=== PATIENT | female | born 1960 | race Caucasian/White ===

== ENCOUNTER 2018-07-22 23:51 | Outpatient (CLI) | payer MEDICARE, MEDICAID | END 2018-07-22 23:52 | disposition critical access hospital (66) | LOC: EMS 23:51 | PROVIDERS: ATTEND Surgery | DX: R20.2 Paresthesia of skin (principal); R20.0 Anesthesia of skin | CPT/HCPCS: A0425; A0429 ==

== ENCOUNTER 2018-07-23 00:05 | Emergency (ER) | payer MEDICARE, MEDICAID ==
--- NOTE | 2018-07-23 00:27 | ED Physician Documentation ---
PD HPI UPPER EXT INJURY - Stated complaint Stated Complaint: L SHOULDER PX - Chief complaint Chief Complaint: Ext Problem - History obtained from History obtained from: Patient, EMS - History of Present Illness Location: Left, Shoulder Type of injury: No: Fall, Twist Where injury occurred: Home Timing - onset: How many weeks ago (She has had intermittent pain in the left shoulder and worse the last 3 weeks. It is worsened by overhead reaching, twisting and lifting. She states it hurt more this past evening and was associa juan alberto with some shortness of breath and tightness in her chest.) Timing - details: Waxing and waning Improved by: Rest Worsened by: Moving. No: Palpating Associated symptoms: No: Weakness, Numbness, Swelling Similar symptoms before: Has not had sx before Recently seen: Not recently seen Review of Systems Constitutional: denies: Fever, Chills Nose: denies: Rhinorrhea / runny nose, Congestion Throat: denies: Sore throat Cardiac: reports: Chest pain / pressure (left upper chest and shoulder). 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 : None HEENT: None Psych: None Musculoskeletal: None Derm: None - Past Surgical History Past Surgical History: Yes /[employer]: Oophrectomy - Present Medications Home Medications: Ambulatory Orders Medication Instructions Recorded Confirmed Methocarbamol [Robaxin] 500 mg PO Q6H PRN #30 tablet 07/23/18 Naproxen 375 mg PO BID #20 tablet 07/23/18 - Allergies Allergies/Adverse Reactions: Allergies Allergy/AdvReac Type Severity Reaction Status Date / Time No Known Drug Allergies Allergy Verified 07/23/18 00:09 - Social History Does the pt smoke?: Yes Smoking Status: Current every day smoker Does the pt drink ETOH?: Yes Does the pt have substance abuse?: No - Immunizations Immunizations are current?: Yes - POLST Patient has POLST: No PD ED PE NORMAL - Vitals Vital signs reviewed: Yes - General General: Alert and oriented X 3, Well developed/nourished, Other (some slurring of speech and strong smell of alcohol) - HEENT HEENT: Pharynx benign - Neck Neck: Supple, no meningeal sign, No adenopathy - Cardiac Cardiac: RRR, No murmur - Respiratory Respiratory: Clear bilaterally - Abdomen Abdomen: Soft, Non tender - Derm Derm: Normal color, Warm and dry - Extremities Extremities: No tenderness to palpate, Normal ROM s pain, No edema, No calf tenderness / cord, Other (left shoulder tender around anterior aspect and AC area. Pain with pulling and abduction.) - Neuro Neuro: Alert and oriented X 3, No motor deficit, No sensory deficit, Normal speech Results - Vitals Vitals: Vital Signs - 24 hr 07/23/18 07/23/18 07/23/18 00:05 00:45 01:14 Temperature 36.5 C Heart Rate 86 84 71 Respiratory 18 20 15 Rate Blood Pressure 142/87 H 117/84 H 120/81 H O2 Saturation 98 96 100 07/23/18 07/23/18 07/23/18 01:28 02:44 02:59 Temperature Heart Rate 76 76 93 Respiratory 19 17 20 Rate Blood Pressure 120/81 H 105/74 105/74 O2 Saturation 98 99 Oxygen O2 Source Room air - EKG (time done) presentation Rhythm: NSR [place]: Normal Intervals: Normal [place] QRS: Normal Ischemia: Normal ST segments. No: ST elevation c/w ischemia, ST depression - Labs Labs: Laboratory Tests 07/23/18 07/23/18 07/23/18 00:15 00:15 00:15 WBC 4.4 L RBC 4.64 Hgb 13.7 Hct 41.4 MCV 89.3 MCH 29.6 MCHC 33.1 RDW 13.9 Plt Count 84 L MPV 9.0 Neut # (Auto) 1.9 Lymph # (Auto) 2.2 [place] # (Auto) 0.3 Eos # (Auto) 0.0 Baso # (Auto) 0.1 Absolute Nucleated RBC 0.00 Nucleated RBC % 0.1 Sodium 137 Potassium 3.7 Chloride 102 Carbon Dioxide 25 Anion Gap 10.0 BUN 7 Creatinine 0.4 Estimated GFR (MDRD) 163 Glucose 87 Calcium 8.4 L Magnesium 2.0 Total Bilirubin 0.7 AST 116 H ALT 44 Alkaline Phosphatase 236 H Troponin I < 0.04 Total Protein 8.3 H Albumin 3.4 Globulin 4.9 H Albumin/Globulin Ratio 0.7 L Lipase 50 TSH Ethyl Alcohol 385.2 07/23/18 00:15 WBC RBC Hgb Hct MCV MCH MCHC RDW Plt Count MPV Neut # (Auto) Lymph # (Auto) [place] # (Auto) Eos # (Auto) Baso # (Auto) Absolute Nucleated RBC Nucleated RBC % Sodium Potassium Chloride Carbon Dioxide Anion Gap BUN Creatinine Estimated GFR (MDRD) Glucose Calcium Magnesium Total Bilirubin AST ALT Alkaline Phosphatase Troponin I Total Protein Albumin Globulin Albumin/Globulin Ratio Lipase TSH 2.15 Ethyl Alcohol - Rads (name of study) chest xray Radiology: Prelim report reviewed, EMP read contemporaneously (prior healed rib fractures. no acute.), See rad report left shoulder Radiology: Prelim report reviewed (no acute), See rad report PD MEDICAL DECISION MAKING - ED course Complexity details: considered differential (shoulder and left chest pain seem musculoskeletal. ), d/w patient Departure - Departure Disposition: 01 Home, Self Care Clinical Impression: Left shoulder pain Qualifiers: Chronicity: acute Qualified Code(s): M25.512 - Pain in left shoulder Alcohol intoxication Qualifiers: Complication of substance-induced condition: uncomplicated Qualified Code(s): F10.920 - Alcohol use, unspecified with intoxication, uncomplicated Condition: Stable Record reviewed to determine appropriate education?: Yes Instructions: ED Alcohol Abuse, ED Shoulder Pain [facility] Follow-Up: [facility] [Provider Group] [facility] [Provider Group] Prescriptions: Methocarbamol [Robaxin] 500 mg PO Q6H PRN #30 tablet PRN Reason: Spasms Naproxen 375 mg PO BID #20 tablet Comments: Your blood tests, EKG, chest x-ray did not show any obvious heart or lung cause for the pains. I presume its musculoskeletal pain of the shoulder. I would suggest taking some naproxen twice daily with food for the next 7-10 days. You can add methocarbamol muscle relaxant as needed for the spasm type episodes of pain. Add Tylenol if needed for pain. Recheck if not improved over the next week or so. Your alcohol level is quite high here in it sounds like you probably drink excessively. I would suggest seeking treatment programs, AA, her primary care to help with alcohol reduction and cessation. Discharge Date/Time: 07/23/18 03:27
[2018-07-23] MEDS ORDERED: SODIUM CHLORIDE 0.9% 1,000 ML IV ONE (00:46)
[2018-07-23] MEDS ORDERED: KETOROLAC 15 MG/ML VIAL IVP STA (00:47)
[2018-07-23] MEDS ORDERED: ACETAMINOPHEN 325 MG TABLET PO STA (00:48)
[2018-07-23 00:54] LABS: BASOPHILS # (AUTO) 0.1 10^3/uL (0.0-0.1); BASOPHILS % (AUTO) 1.3 %; EOSINOPHILS % (AUTO) 0.3 %; HGB - HEMOGLOBIN 13.7 g/dL (12.0-16.0); LYMPHOCYTES # (AUTO) 2.2 10^3/uL (1.5-3.5); LYMPHOCYTES % (AUTO) 49.8 %; MEAN CORPUSCULAR HEMOGLOBIN 29.6 pg (27.0-31.0); MEAN CORPUSCULAR HGB CONC 33.1 g/dL (32.0-36.0); MEAN CORPUSCULAR VOLUME 89.3 fL (81.0-99.0); MONOCYTES # (AUTO) 0.3 10^3/uL (0.0-1.0); MONOCYTES % (AUTO) 6.3 %; NEUTROPHILS # (AUTO) 1.9 10^3/uL (1.5-6.6); NEUTROPHILS % (AUTO) 42.3 %; PLT - PLATELET COUNT 84 10^3/uL (130-450); RED BLOOD COUNT 4.64 10^6/uL (4.20-5.40); RED CELL DISTRIBUTION WIDTH 13.9 % (12.0-15.0); WHITE BLOOD COUNT 4.4 x10^3/uL (4.8-10.8)
[2018-07-23 01:04] LABS: ALBUMIN 3.4 g/dL (3.2-5.5); ALBUMIN/GLOBULIN RATIO 0.7 (1.0-2.2); BILIRUBIN,TOTAL 0.7 mg/dL (0.2-1.0); CALCIUM 8.4 mg/dL (8.5-10.3); CREATININE 0.4 mg/dL (0.4-1.0); TOTAL PROTEIN 8.3 g/dL (6.7-8.2)
--- NOTE | 2018-07-23 02:26 | XRAY Report ---
Reason: chest pain Procedure Date: 07/23/2018 Accession Number: [id number] / [id number] Procedure: XR - Chest 1 View X-Ray CPT Code: 61216 FULL RESULT: EXAM: CHEST RADIOGRAPHY EXAM DATE: 07/23/2018 02:12 AM. CLINICAL HISTORY: Chest pain. COMPARISON: [facility]BS W/PA CHEST RT 10/04/2014 9:30 AM SHOULDER 3 VIEW LT 07/23/2018 1:57 AM. TECHNIQUE: 1 view. FINDINGS: Lungs/Pleura: No focal opacities evident. No pleural effusion. No pneumothorax. Mediastinum: Within exam limitations, the cardiomediastinal contour is normal. Other: Old, healed rib fractures. IMPRESSION: No evidence of acute cardiopulmonary disease. RADIA
--- NOTE | 2018-07-23 02:27 | XRAY Report ---
Reason: left shoulder pain for 3 weeks Procedure Date: 07/23/2018 Accession Number: [id number] / [id number] Procedure: XR - Shoulder 3 View LT CPT Code: FULL RESULT: EXAM: LEFT SHOULDER RADIOGRAPHY EXAM DATE: 07/23/2018 02:15 AM. CLINICAL HISTORY: Left shoulder pain for 3 weeks. COMPARISON: None. TECHNIQUE: 3 views. FINDINGS: Bones: No evidence of acute fracture. Old, healed left rib fractures. Joints: The glenohumeral and acromioclavicular joints are normal. Soft tissues: The visualized hemithorax is unremarkable. No soft tissue swelling. IMPRESSION: No evidence of acute fracture. RADIA
[2018-07-23 02:47] VITALS: BP 105/74
== END 2018-07-23 03:27 | disposition home or self-care (01) ==
LOC: EDUNIT# → ED 00:05
DX: M25.512 Pain in left shoulder (principal); F10.120 Alcohol abuse with intoxication, uncomplicated; Y90.8 Blood alcohol level of 240 mg/100 ml or more; F17.200 Nicotine dependence, unspecified, uncomplicated
CPT/HCPCS: 36415; 71045; 73030; 83690; 83735; 84484; 93005; 96361; 96374; 99283; 99284; A9270; 80053; 80320; 84443; 85025

== ENCOUNTER 2020-04-21 21:27 | Outpatient (CLI) | payer MEDICARE | END 2020-04-21 21:28 | disposition critical access hospital (66) | LOC: MERGE 21:27 → EMS 21:27 | PROVIDERS: ATTEND Surgery | DX: R41.82 Altered mental status, unspecified (principal); F10.129 Alcohol abuse with intoxication, unspecified; I95.9 Hypotension, unspecified | CPT/HCPCS: A0425; A0429 ==

== ENCOUNTER 2020-04-21 21:44 | Inpatient (IN) | payer MEDICARE, MEDICAID ==
--- NOTE | 2020-04-21 21:50 | ED Physician Documentation ---
PD HPI ALTERED MENTAL STATUS - Stated complaint Stated Complaint: AMS/ HBD - History obtained from History obtained from: EMS - History of Present Illness Timing - onset: Today (tonight) Quality / character: Less responsive, Disoriented Associated symptoms: NVD. No: Syncope Contributing factors: Intoxicated [place] status: Alert and oriented X 3, Ambulatory Recently seen: Not recently seen - Additional information Additional information: patient has AMS and thus not able to contribute to HPI/ROS. BIBArlen. 911 was called by patient's . Per EMS report, says that patient returned from a neighbor's house with appearance and odor or alcohol intoxication, confused and vomiting when she got home. No LOC, no report of witnessed fall/injury. told medics that patient has h/o alcoholism. 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 She arrives incontinent of stool Review of Systems Unable to obtain: Intoxicated PD PAST MEDICAL HISTORY - Past Medical History Other Past Medical History: unknown (patient unable to provide this information and not answering contact phone number) - Past Surgical History Other past surgical history: unknown - Present Medications Home Medications: Ambulatory Orders Medication Instructions Recorded Confirmed Naproxen 375 mg PO BID #20 tablet 07/23/18 methocarbamoL [Robaxin] 500 mg PO Q6H PRN #30 tablet 07/23/18 - Allergies Allergies/Adverse Reactions: Allergies Allergy/AdvReac Type Severity Reaction Status Date / Time No Known Drug Allergies Allergy Verified 04/22/20 08:47 - Living Situation Living Situation: reports: With spouse/s.o. Living Arrangement: reports: At home - Social History Does the pt drink ETOH?: Yes PD ED PE NORMAL - Vitals Vital signs reviewed: Yes - General General: No acute distress, Other (awake; heavily slurred speech, repeatedly apologizing. does not offer intelligible or useful answers to HPI/ROS; incontinent of stool) - HEENT HEENT: Atraumatic, PERRL, Other (pasty mucous membranes) - Neck Neck: Supple, no meningeal sign, No bony TTP - Cardiac Cardiac: No murmur - Respiratory Respiratory: No respiratory distress, Clear bilaterally - Abdomen Abdomen: Soft, Non tender, Non distended - Derm Derm: Normal color, Warm and dry - Extremities Extremities: No edema - Neuro Eye Opening: Spontaneous Motor: Obeys Commands Verbal: Inappropriate GCS Score: 13 PD ED PE EXPANDED - Cardiac Cardiac: Tachy, Regular Rhythm Results - Vitals Vitals: Vital Signs - 24 hr 04/21/20 04/21/20 04/21/20 21:45 22:10 22:36 Temperature 36.1 C L Heart Rate 101 H 101 H 88 Respiratory 25 H 10 L 17 Rate Blood Pressure 55/44 L 75/51 L 79/44 L O2 Saturation 98 96 100 04/21/20 04/21/20 04/22/20 22:50 23:12 00:07 Temperature Heart Rate 88 80 78 Respiratory 29 H 27 H 21 Rate Blood Pressure 72/51 L 62/44 L 57/31 L O2 Saturation 100 100 98 04/22/20 00:34 Temperature Heart Rate 88 Respiratory 26 H Rate Blood Pressure 60/38 L O2 Saturation 100 Oxygen O2 Source Room air - EKG (time done) No standard instances Rate: Rate (enter#) (68) Rhythm: NSR [place]: Normal Intervals: Normal [place] QRS: Normal Ischemia: Normal ST segments - Labs Labs: Laboratory Tests 04/21/20 04/21/20 04/21/20 22:10 22:10 22:10 WBC 4.8 RBC 2.95 L Hgb 8.9 L Hct 28.0 L MCV 94.9 MCH 30.2 MCHC 31.8 L RDW 13.3 Plt Count 100 L MPV 10.4 Neut # (Auto) 2.6 Lymph # (Auto) 1.8 [place] # (Auto) 0.3 Eos # (Auto) 0.0 Baso # (Auto) 0.1 Absolute Nucleated RBC 0.00 Nucleated RBC % 0.0 Sodium 132 L Potassium 2.7 L Chloride 100 L Carbon Dioxide 19 L Anion Gap 13.0 BUN 8 Creatinine 0.6 Estimated GFR (MDRD) 102 Glucose 177 H Lactic Acid Calcium 7.3 L Total Bilirubin 0.5 AST 67 H ALT 27 Alkaline Phosphatase 108 Troponin I High Sens 4.9 Total Protein 5.7 L Albumin 2.2 L Globulin 3.5 Albumin/Globulin Ratio 0.6 L Lipase 72 H Urine Color Urine Clarity Urine pH Ur Specific Success Urine Protein Urine Glucose (UA) Urine Ketones Urine Occult Blood Urine Nitrite Urine Bilirubin Urine Urobilinogen Ur Leukocyte Esterase Urine RBC Urine WBC Ur Squamous Epith Cells Urine Bacteria Ur Microscopic Review Urine Culture Comments Nasal Adenovirus (PCR) Nasal B. parapertussis DNA (PCR) Nasal Coronavir 229E PCR Nasal Coronavir HKU1 PCR Nasal Coronavir NL63 PCR Nasal Coronavir OC43 PCR Nasal Enterovir/Rhinovir PCR Nasal Influenza B PCR Nasal Influenza A PCR Nasal Parainfluen 1 PCR Nasal Parainfluen 2 PCR Nasal Parainfluen 3 PCR Nasal Parainfluen 4 PCR Nasal RSV (PCR) Nasal B.pertussis DNA PCR Nasal C.pneumoniae (PCR) Kleber Human Metapneumo PCR Nasal M.pneumoniae (PCR) Nasal SARS-CoV-2 (PCR) Urine Opiates Screen Ur Oxycodone Screen Urine Methadone Screen Ur Propoxyphene Screen Ur Barbiturates Screen Ur Tricyclics Screen Ur Phencyclidine Scrn Ur Amphetamine Screen U Methamphetamines Scrn U Benzodiazepines Scrn Urine Cocaine Screen U Cannabinoids Screen Ethyl Alcohol 374.2 04/21/20 04/22/20 04/22/20 23:39 00:28 00:32 WBC RBC Hgb Hct MCV MCH MCHC RDW Plt Count MPV Neut # (Auto) Lymph # (Auto) [place] # (Auto) Eos # (Auto) Baso # (Auto) Absolute Nucleated RBC Nucleated RBC % Sodium Potassium Chloride Carbon Dioxide Anion Gap BUN Creatinine Estimated GFR (MDRD) Glucose Lactic Acid 7.7 H* Calcium Total Bilirubin AST ALT Alkaline Phosphatase Troponin I High Sens Total Protein Albumin Globulin Albumin/Globulin Ratio Lipase Urine Color YELLOW Urine Clarity CLEAR Urine pH 6.0 Ur Specific Success <=1.005 Urine Protein NEGATIVE Urine Glucose (UA) NEGATIVE Urine Ketones NEGATIVE Urine Occult Blood NEGATIVE Urine Nitrite NEGATIVE Urine Bilirubin NEGATIVE Urine Urobilinogen 0.2 (NORMAL) Ur Leukocyte Esterase SMALL H Urine RBC 0-5 Urine WBC 4-5 Ur Squamous Epith Cells RARE Squamous Urine Bacteria Moderate H Ur Microscopic Review INDICATED Urine Culture Comments INDICATED Nasal Adenovirus (PCR) NOT DETECTED Nasal B. parapertussis DNA (PCR) NOT DETECTED Nasal Coronavir 229E PCR NOT DETECTED Nasal Coronavir HKU1 PCR NOT DETECTED Nasal Coronavir NL63 PCR NOT DETECTED Nasal Coronavir OC43 PCR NOT DETECTED Nasal Enterovir/Rhinovir PCR NOT DETECTED Nasal Influenza B PCR NOT DETECTED Nasal Influenza A PCR NOT DETECTED Nasal Parainfluen 1 PCR NOT DETECTED Nasal Parainfluen 2 PCR NOT DETECTED Nasal Parainfluen 3 PCR NOT DETECTED Nasal Parainfluen 4 PCR NOT DETECTED Nasal RSV (PCR) NOT DETECTED Nasal B.pertussis DNA PCR NOT DETECTED Nasal C.pneumoniae (PCR) NOT DETECTED Kle[place] Human Metapneumo PCR NOT DETECTED Nasal M.pneumoniae (PCR) NOT DETECTED Nasal SARS-CoV-2 (PCR) NOT DETECTED Urine Opiates Screen NEGATIVE Ur Oxycodone Screen NEGATIVE Urine Methadone Screen NEGATIVE Ur Propoxyphene Screen NEGATIVE Ur Barbiturates Screen NEGATIVE Ur Tricyclics Screen NEGATIVE Ur Phencyclidine Scrn NEGATIVE Ur Amphetamine Screen NEGATIVE U Methamphetamines Scrn NEGATIVE U Benzodiazepines Scrn NEGATIVE Urine Cocaine Screen NEGATIVE U Cannabinoids Screen NEGATIVE Ethyl Alcohol - Rads (name of study) chest xray Radiology: Prelim report reviewed, See rad report CT head Radiology: Prelim report reviewed, See rad report PD MEDICAL DECISION MAKING - ED course Complexity details: reviewed results, re-evaluated patient, considered differential, d/w patient ED course: BIOFIRE respiratory panel ordered (including COVID) due to anticipation of likely admission to hospital. patient had persistent hypotension despite infusion of 2 liters NS followed by 1 liter "banana bag" (without multivitamin due to unavailable). although there is no obvious nor suspected source of infection, a lactate level was then checked and found to be critically high (7.7). I contacted anesthesia salesperson furniture and Dr. Mack graciously came to ED and placed CVC; cultures drawn from this and IV antibiotics started as well as levophed drip. D/W Dr. Dodd, requests CTH and troponin, and she subsequently admitted patient after these were resulted. - Critical Care Time(min): 70 Time Includes: Direct patient care, Review records, Reassess patient, Document care, Coordinate care, Medical consult, See progress note Data interpretation: Labs, Pulse ox, CXR, Cardiac output, See progress note Procedures included in critical care time: See progress note Procedures excluded from critical care time: See progress note - Sepsis Event Current Stage of Sepsis: Septic shock Persistent Hypotension: MAP less than 65 mmHg, SBP less than 90 mmHg Possible source of Sepsis: Unknown Mental/Cognitive Status: Confused, Oriented to name, Other (note that patient is also heavily intoxicated) Reason for not giving 30ml/kg crystalloid fluids: Bolus previously given Capillary refill: Less than 2 seconds Peripheral Pulse Strength: 1+ Faint Peripheral Pulse Location: Radial Bedside ultrasound performed: No Sepsis Comment: lactate 7.7 Departure - Departure Disposition: 66 [facility] DC/Xfer Clinical Impression: Hypotension Qualifiers: Hypotension type: unspecified hypotension type Qualified Code(s): I95.9 - Hypotension, unspecified Alcohol intoxication Qualifiers: Complication of substance-induced condition: with unspecified complication Qualified Code(s): F10.929 - Alcohol use, unspecified with intoxication, unspecified Condition: Critical Discharge Date/Time: 04/22/20 02:25
[2020-04-21] MEDS ORDERED: SODIUM CHLORIDE 0.9% 1,000 ML IV STA ×2 (21:59→22:53)
[2020-04-21 22:16] LABS: BASOPHILS # (AUTO) 0.1 10^3/uL (0.0-0.1); BASOPHILS % (AUTO) 1.2 %; EOSINOPHILS % (AUTO) 0.6 %; HGB - HEMOGLOBIN 8.9 g/dL (12.0-16.0); LYMPHOCYTES # (AUTO) 1.8 10^3/uL (1.5-3.5); MEAN CORPUSCULAR HEMOGLOBIN 30.2 pg (27.0-31.0); MEAN CORPUSCULAR HGB CONC 31.8 g/dL (32.0-36.0); MEAN CORPUSCULAR VOLUME 94.9 fL (81.0-99.0); MEAN PLATELET VOLUME 10.4 fL (7.9-10.8); MONOCYTES # (AUTO) 0.3 10^3/uL (0.0-1.0); NEUTROPHILS # (AUTO) 2.6 10^3/uL (1.5-6.6); NEUTROPHILS % (AUTO) 53.8 %; PLT - PLATELET COUNT 100 10^3/uL (130-450); RED BLOOD COUNT 2.95 10^6/uL (4.20-5.40); RED CELL DISTRIBUTION WIDTH 13.3 % (12.0-15.0); WHITE BLOOD COUNT 4.8 x10^3/uL (4.8-10.8)
--- NOTE | 2020-04-21 22:19 | XRAY Report ---
PROCEDURE: Chest 1 View X-Ray INDICATIONS: AMS, hypotension TECHNIQUE: One view of the chest was acquired. COMPARISON: None. FINDINGS: Surgical changes and devices: None. Lungs and pleura: No pleural effusions or pneumothorax. Lungs are clear. Mediastinum: Mediastinal contours appear normal. Heart size is normal. Bones and chest wall: No suspicious bony lesions. Healed fracture deformities of multiple bilateral ribs. Overlying soft tissues appear unremarkable. IMPRESSION: Chest without acute cardiopulmonary abnormalities. Reviewed by: Lopez Sharp MD on 04/21/2020 10:18 PM [facility] Approved by: Lopez Sharp MD on 04/21/2020 10:18 PM [facility] Station ID: [id number]
[2020-04-21 22:29] LABS: ALBUMIN 2.2 g/dL (3.2-5.5); ALBUMIN/GLOBULIN RATIO 0.6 (1.0-2.2); BILIRUBIN,TOTAL 0.5 mg/dL (0.2-1.0); CALCIUM 7.3 mg/dL (8.5-10.3); CREATININE 0.6 mg/dL (0.4-1.0); TOTAL PROTEIN 5.7 g/dL (6.7-8.2)
[2020-04-21] MEDS ORDERED: FOLIC ACID INJ 1 MG, THIAMINE INJ 100 MG, MAGNESIUM SULFATE 2 GM, MULTIVITAMIN 10 ML in... IV STA ×5 (23:30)
[2020-04-22] MEDS ORDERED: FOLIC ACID 5 MG/1 ML 10ML MDV ONE ×2 (00:01→22:30)
[2020-04-22] MEDS ORDERED: THIAMINE 100 MG/1 ML 2 ML MDV ONE ×2 (00:01→22:11)
[2020-04-22] MEDS ORDERED: MAGNESIUM SULFATE 1 GM/2 ML VIAL ONE (00:01)
[2020-04-22] MEDS ORDERED: DEXTROSE 5% IV STA (00:36)
[2020-04-22] MEDS ORDERED: VANCOMYCIN INJ 1.25 GM in SODIUM CHLORIDE 0.9% 250 ML IV STA (00:36)
[2020-04-22] MEDS ORDERED: CEFEPIME 2 GM in SODIUM CHLORIDE 0.9% MINIBAG 100 ML IV STA (00:36)
[2020-04-22] MEDS ORDERED: metroNIDAZOLE 500 MG/100 ML 500 MG/100 ML BAG IV STA (00:36)
[2020-04-22] MEDS ORDERED: NOREPINEPHRINE IV STA (00:36)
[2020-04-22 00:39] LABS: MUDS CUTOFF CONCENTRATIONS CUTOFF CONC BELOW:
[2020-04-22 00:46] LABS: BILIRUBIN,URINE NEGATIVE (NEGATIVE); GLUCOSE, URINE (UA) NEGATIVE (NEGATIVE); KETONES,URINE (UA) NEGATIVE (NEGATIVE); LEUKOCYTE ESTERASE, URINE SMALL (NEGATIVE); NITRITE,URINE NEGATIVE (NEGATIVE); OCCULT BLOOD,URINE NEGATIVE (NEGATIVE); PROTEIN,URINE NEGATIVE (NEGATIVE); UROBILINOGEN,URINE 0.2 (NORMAL) E.U./dL (NORMAL)
[2020-04-22 00:47] LABS: CLARITY,URINE CLEAR (CLEAR)
[2020-04-22 00:52] LABS: BACTERIA,URINE Moderate /HPF (None Seen); RBC,URINE 0-5 /HPF (0-5); SQUAMOUS EPITHELIAL CELL,UR RARE Squamous (<= Few)
[2020-04-22 00:56] LABS: AMPHETAMINE SCREEN,URINE NEGATIVE (NEGATIVE); BENZODIAZEPINES SCREEN, URINE NEGATIVE (NEGATIVE); COCAINE SCREEN URINE NEGATIVE (NEGATIVE); METHADONE SCREEN, URINE NEGATIVE (NEGATIVE); METHAMPHETAMINES SCREEN, URINE NEGATIVE (NEGATIVE); OPIATE SCREEN, URINE NEGATIVE (NEGATIVE); OXYCODONE SCREEN, URINE NEGATIVE (NEGATIVE); PROPOXYPHENE SCREEN, URINE NEGATIVE (NEGATIVE); TRICYCLIC ANTIDEPRESSANT,URINE NEGATIVE (NEGATIVE)
[2020-04-22 00:58] LABS: C. PNEUMONIAE- RESP PCR PANEL NOT DETECTED
[2020-04-22] MEDS ORDERED: ONDANSETRON ODT 4 MG TABLET TL PRN (01:01)
[2020-04-22] MEDS ORDERED: oxyCODONE 5 MG TABLET PO PRN (01:01)
[2020-04-22] MEDS ORDERED: ACETAMINOPHEN 325 MG TABLET PO PRN (01:01)
--- NOTE | 2020-04-22 01:15 | ANESTHESIA PROCEDURE NOTE ---
Anesth Central Line Template - Central Line Central Line Preparation: Unable to obtain consent (patient intoxicated, no f amily at hospital and not answering phone calls), Time out completed, Ultrasound used, Sterile prep and drape Central line location: Right IJ Central line type: Triple lumen Central line catheter tip site resides: Superior vena cava (SVC) Central line aftercare: Secured, Placement confirmed, No pneumothorax, No complications, Bundle checklist complete, Pt tolerated well
[2020-04-22] MEDS ORDERED: VANCOMYCIN 1 GM VIAL ONE (01:22)
--- NOTE | 2020-04-22 01:38 | HISTORY & PHYSICAL EXAMINATION ---
Chief Complaint - Chief Complaint Chief Complaint: unconscious History of Present Illness - Admitted From Admitted From:: home via EMS - History Obtained From Records Reviewed: [facility] History obtained from: Dr. Kidd Exam Limitations: patient is intoxicated and altered - History of Present Illness HPI Comment/Other: This is a 59-year-old female that was brought in by ambulance. I am unable to speak to her and have tried contacting him several times at [phone]. I have left messages. History is obtained from Dr. Kidd and nursing staff. Patient is a known alcoholic according to the . She usu ally drinks beer. She usually drinks with her neighbors. She went over to her neighbor's house as usual. She came back from the neighbor's house and laid down and became unresponsive. There is no antecedent history of infection, fever, falls, or other intake of other substances. He called EMS. He told EMS that she does not do well with hard liquor and postulates that she may have drank something else besides beer. She is awake enough to answer some questions. She used to see a Dr. Nikita Knight in [place]. But he retired so long ago she cannot remember when he retired. She does not see any doctor locally [place] and is [place]. She does not remember being sick with anything. She denies any antecedent symptoms of chest pain, cough, shortness of breath. She has not fallen down. She denies taking anything other than beer.She tells me that she did not drink any more than usual and drink the same amount of beer with her neighbors. She has had no recent travel. Essentially no change in her healthcare status until scotty's episode of unconsciousness was because her to call EMS.Now that she has had 2 L, a little bit more awake, she tells me that she has generalized abdominal pain across her upper abdomen. It seems to be getting worse. She does not remember hitting anything, or having abdominal pain before. Nursing staff made an attempt to call the as well. Unsuccessful. Initial blood pressure 55/44. Heart rate 101. Temperature 36.1. 25 respiration rate. 98% on room air. She knew her own name, was very apologetic since she had been incontinent of stool and it was on her pants, underwear, and over most of her body. Glucose was 136. She was awake, following commands, but confused. Calm and cooperative. She had nausea and vomiting. Was pale, lethargic. Dr. Kidd gave her IV fluids. Bolus to bring up her blood pressure. It came up to the 70 systolic. He then continue the work-up for hypotension and check troponins, blood cultures, urine cultures, CBC. Troponins were normal. Hemoglobin was 8.9. White cell count normal. Lactic acid 7.7. Blood screen negative for all toxic screens. Serum ethyl alcohol 374.2. Urinalysis had a small amount of leukocyte esterase, moderate bacteria and rare squamous cells. Chest x-ray was negative. Because of her low blood pressure in the emergency room, minimally responsive to IV fluids, Dr. Kidd asked that anesthesia please come place a central line. I have been asked to admit the patient. Up to now resuscitation has been fluids. Antibiotics have been ordered but not quite given yet. Waiting for the central line. History - Past Medical History Cardiovascular: reports: None Respiratory: reports: None Neuro: reports: None Endocrine/Autoimmune: reports: None GI: reports: None CATALOGUE ILLUSTRATOR: reports: Other (G3, P3 with hysterectomy) : reports: None HEENT: reports: Other (Edentulous, no dentures) Psych: reports: None Musculoskeletal: reports: Chronic back pain (She fell off a scaffolding 14 years ago, and has been on disability ever since then for severe back pain, neck pain, shoulder pain) Derm: reports: None Other Past Medical History: At this time the patient is unable to give a cogent lucid history - Past Surgical History /CATALOGUE ILLUSTRATOR: reports: Hysterectomy Other past surgical history: Unable to get history - Family & Social History Family History Comment/Other: Unable to get history Living arrangement: At home Living Situation: With spouse/s.o. Social History Notes: Smokes 12 cigarettes a day. Has done so since the age of 13. She used to do a lot of substances in the past. She used to do methamphetamines, heroin, but has not done so in decades. Drinks anywhere from a 6 pack to a 12 pack a day of beer. On disability. Lives with her . - Substance History Use: Uses substance without health or social issues: Tobacco Abuse: Recurrent use of substance despite neg consequences: Alcohol Abuse Issues: Intoxication Dependence: Experiences withdrawal or developed tolerances: NONE - POLST Patient has POLST: No POLST Status: Full Code Meds/Allgy - Allergies Allergies/Adverse Reactions: Allergies Allergy/AdvReac Type Severity Reaction Status Date / Time No Known Drug Allergies Allergy Verified 04/21/20 22:10 Review of Systems - Constitutional Constitutional: reports: Weakness (Right at this moment. Otherwise denies all constitutional symptoms) - Eyes Eyes: reports: Other (All negative) - Ears, Nose & Throat Ears, Nose & Throat: reports: Other (All negative) - Cardiovascular Cariovascular: reports: Other (All negative) - Respiratory Respiratory: reports: Other (Specifically denies any problems with COPD or ast hma in spite of cigarettes. All negative) - Gastrointestinal Gastrointestinal: reports: Abdominal pain (Across upper abdomen from right to left. Constant, unremitting, a 5 out of a 10). denies: Abdominal distention, Change in bowel habits, Black stools, Bloody stools, Nausea, Vomiting - Genitourinary Genitourinary: reports: Other (All negative) - Musculoskeletal Musculoskeletal: reports: Muscle aches, Stiffness, Joint pain - Integumentary Integumentary: reports: Other (All negative) - Neurological Neurological: reports: General weakness. denies: Focal weakness, Headache, Dizziness, Memory problems, Pre-existing deficit, Abnormal gait - Psychiatric Psychiatric: denies: Depression, Anxiety, Suicidal - Endocrine Endocrine: denies: Polyuria, Polydypsia, Polyphagia - Hematologic/Lymphatic Hematologic/Lymphatic: denies: Anemia, Bruising, Petechiae - Other Findings Other Findings: Unable to obtain. Prior Level of Functionality: She says she does not do much because of her disability. But she is able to dress herself, feed herself, drives a car. Exam - Vital Signs Reviewed Vital Signs: Yes Vital Signs: Vital Signs x48h Temp Pulse Resp BP Pulse Ox 04/22/20 01:06 72 24 64/44 L 98 04/22/20 00:34 88 26 H 60/38 L 100 04/22/20 00:07 78 21 57/31 L 98 04/21/20 23:12 80 27 H 62/44 L 100 04/21/20 22:50 88 29 H 72/51 L 100 04/21/20 22:36 88 17 79/44 L 100 04/21/20 22:10 101 H 10 L 75/51 L 96 04/21/20 21:45 36.1 C L 101 H 25 H 55/44 L 98 - Physical Exam General Appearance: positive: No acute distress, Lethargic, Other (Looks much, much, much older than stated age) Eyes Bilateral: positive: PERRL, EOMI ENT: positive: Dry mucous membranes, Other (Edentulous). negative: Purulent nasal drainage, Pharyngeal erythema, Oral lesions Neck: positive: No JVD. negative: Stiff neck, Carotid bruit Respiratory: positive: No respiratory distress. negative: Wheezes, Rales, Rhonchi Cardiovascular: positive: Regular rate & rhythm, Systolic murmur. negative: Gal lop/S4, Friction rub Peripheral Pulses: positive: 0 Abdomen: positive: Tenderness (Across the upper abdomen from right to left. No rebound or guarding. Hypoactive bowel sounds. Nondistended.) Back: negative: CVA tenderness (R), CVA tenderness (L) Skin: positive: Dry, Pallor, Other (Very cold hands and feet) Extremities: positive: Full ROM, No pedal edema Neurologic/Psychiatric: positive: CN's nml (2-12), Motor nml (But severe generalized weakness. She can barely hold her head up), Disoriented to time, Slurred/abnml speech Sepsis Event Note (H) - Evaluation Possible source of Sepsis: positive: Unknown Conclusion/Plan - Problem List (1) Hypotension Conclusion/Plan: At this time, taking into account the lactic acidosis, the differential diagnosis would include: Infection NE Intake of recreational substance Bleeding Liver disease Plan: Preliminary evaluation shows no source of the hypotension. Minimally responsive to IV fluids. Unknown what her baseline blood pressure is and she did mumble that sometimes her blood pressure is low. She will continue to receive aggressive IV fluid resuscitation She will continue to receive empiric antibiotic therapy Trend troponins Check INR Once central line is in place, start Levophed Once blood pressure is stable get CT of abdomen and pelvis Covid screening Qualifiers: Hypotension type: unspecified hypotension type Qualified Code(s): I95.9 - Hypotension, unspecified (2) Alcohol intoxication Conclusion/Plan: Patient is stated is a long-term alcohol abuser. At this time we do not know she has complications of alcoholic liver disease. Liver enzymes are not terribly abnormal. Will check INR. She will get IV thiamine, IV folate. -Check US -Watch for withdrawal Qualifiers: Complication of substance-induced condition: with unspecified complication Qualified Code(s): F10.929 - Alcohol use, unspecified with intoxication, unspecified (3) Anemia Conclusion/Plan: I have tried to get old records through [facility] and [facility]. Cannot find anything. She is normocytic. I would anticipate her being macrocytic if she had severe alcohol abuse. We will check anemia panel. Check stool for fecal occult blood. Qualifiers: Anemia type: unspecified type Qualified Code(s): D64.9 - Anemia, unspecified (4) Abdominal pain Conclusion/Plan: What appears to be moderate, there is no peritoneal findings. At this time I am at a loss to figure out why this patient is hypotensive, am worried about things such as upper GI bleed, aneurysm, portal vein thrombosis. Check CT of abdomen and pelvis Qualifiers: Abdominal location: upper abdomen, unspecified Qualified Code(s): R10.10 - Upper abdominal pain, unspecified (5) Hypokalemia Conclusion/Plan: Supplement with ICU protocol (6) Hyperglycemia Conclusion/Plan: Check A1c. If glucose continues to be elevated in the morning we will then start sliding scale insulin - Lab Results Lab results reviewed: Yes Fish Bones: 04/21/20 22:10 04/22/20 01:29 - Diagnostic Imaging Results Diagnostic Imaging Results: positive: Final report reviewed Core Measures - Anticipated LOS I expect patient to be DC'd or transferred within 96 hours.: Yes - DVT/VTE - Prophylaxis VTE/DVT Device ordered at admit?: Yes
[2020-04-22 01:54] LABS: INR 1.6 (0.8-1.2); PT - PROTHROMBIN TIME 17.7 secs (9.9-12.6)
[2020-04-22 02:04] LABS: CREATININE 0.8 mg/dL (0.4-1.0)
[2020-04-22 02:06] LABS: MAGNESIUM 2.6 mg/dL (1.7-2.8)
[2020-04-22 02:07] LABS: CALCIUM 6.3 mg/dL (8.5-10.3)
[2020-04-22 02:08] LABS: PARTIAL THROMBOPLASTIN TIME 37.2 secs (24.9-33.3)
[2020-04-22 02:09] LABS: CRP - C-REACTIVE PROTEIN < 1.0 mg/dL (0-1.0)
[2020-04-22 02:21] LABS: BASOPHILS % (AUTO) 0.3 %; EOSINOPHILS % (AUTO) 0.3 %; LYMPHOCYTES # (AUTO) 1.1 10^3/uL (1.5-3.5); MEAN CORPUSCULAR HEMOGLOBIN 30.2 pg (27.0-31.0); MEAN CORPUSCULAR HGB CONC 29.5 g/dL (32.0-36.0); MEAN CORPUSCULAR VOLUME 102.1 fL (81.0-99.0); MEAN PLATELET VOLUME 10.6 fL (7.9-10.8); MONOCYTES # (AUTO) 0.7 10^3/uL (0.0-1.0); MONOCYTES % (AUTO) 10.7 %; NEUTROPHILS # (AUTO) 4.9 10^3/uL (1.5-6.6); NEUTROPHILS % (AUTO) 71.5 %; PLT - PLATELET COUNT 71 10^3/uL (130-450); RED BLOOD COUNT 1.89 10^6/uL (4.20-5.40); RED CELL DISTRIBUTION WIDTH 13.5 % (12.0-15.0); WHITE BLOOD COUNT 6.8 x10^3/uL (4.8-10.8)
[2020-04-22 02:24] LABS: HGB - HEMOGLOBIN 5.7 g/dL (12.0-16.0)
[2020-04-22] MEDS ORDERED: IOVERSOL 320 100 ML VIAL IVP ONE ×2 (02:44→05:22)
[2020-04-22] MEDS: SODIUM CHLORIDE FLUSH 0.9% 10 ML SYRINGE IVP PRN ×2 (03:08→10:46)
[2020-04-22] MEDS ORDERED: SODIUM CHLORIDE 0.9% 500 ML IV PRN (03:39)
[2020-04-22 06:37] LABS: ABSOLUTE RETICS # AUTO 0.045 10^6/uL (0.020-0.110); RED BLOOD COUNT 1.89 10^6/uL (4.20-5.40)
[2020-04-22 07:14] LABS: % IRON SATURATION 25 % (20-50); IRON 50 ug/dL (28-170); TOTAL IRON BINDING CAPACITY 197 ug/dL (250-450); TRANSFERRIN 141 mg/dL (192-382)
--- NOTE | 2020-04-22 07:17 | CT Report ---
PROCEDURE: HEAD WO INDICATIONS: AMS, hypotension TECHNIQUE: Noncontrast 4.5 mm thick angled axial sections acquired from the foramen magnum to the vertex. For r adiation dose reduction, the following was used: automated exposure control, adjustment of mA and/or kV according to patient size. COMPARISON: None. FINDINGS: Image quality: Excellent. CSF spaces: Basal cisterns are patent. No extra-axial fluid collections. Ventricles are normal in size and shape. Brain: No midline shift. No intracranial masses or hemorrhage. Moderate cerebral volume loss. Mild periventricular white matter chronic small vessel ischemic changes.. Skull and face: Calvarium and visualized facial bones are intact, without suspicious lesions. Sinuses: Visualized sinuses and mastoids are clear. IMPRESSION: 1. No acute intracranial adenopathy. 2. Cerebral volume loss and periventricular white matter chronic small vessel ischemic changes. No significant discrepancy with the preliminary interpretation. Reviewed by: Olga Flores MD on 04/22/2020 7:15 AM PST Approved by: Olga Flores MD on 04/22/2020 7:15 AM PST Station ID: [id number]
[2020-04-22] MEDS: ONDANSETRON 4 MG/2 ML VIAL IVP PRN ×2 (08:03→19:56)
[2020-04-22] MEDS: CEFEPIME 2 GM in SODIUM CHLORIDE 0.9% MINIBAG 100 ML IV SCH ×2 (08:04→16:29)
[2020-04-22] MEDS: POTASSIUM CHLOR 20 MEQ/100 ML 20 MEQ/100 ML BAG IV SCH ×2 (08:38→09:48)
[2020-04-22] MEDS: metroNIDAZOLE 500 MG/100 ML 500 MG/100 ML BAG IV SCH ×2 (08:45→17:09)
[2020-04-22] MEDS ORDERED: ENOXAPARIN 40 MG/0.4 ML SYRINGE SUBQ SCH (09:00)
[2020-04-22] MEDS ORDERED: THIAMINE INJ 100 MG in SODIUM CHLORIDE 0.9% 50 ML IV SCH (09:00)
[2020-04-22] MEDS ORDERED: FOLIC ACID INJ 1 MG in SODIUM CHLORIDE 0.9% 1,000 ML IV SCH (09:00)
[2020-04-22] MEDS: SODIUM CHLORIDE FLUSH 0.9% 10 ML SYRINGE IVP SCH ×4 (09:18→17:24)
--- NOTE | 2020-04-22 09:23 | CT Report ---
PROCEDURE: Abdomen/Pelvis W INDICATIONS: upper abd pain, BP 54 systolic CONTRAST: IV CONTRAST: Optiray 320 ml: 100 PO CONTRAST: *NO PO CONTRAST TECHNIQUE: After the administration of intravenous contrast, 5 mm thick sections acquired from the diaphragms to the symphysis. 5 mm thick coronal and sagittal reformats were acquired. For radiation dose reducti on, the following was used: automated exposure control, adjustment of mA and/or kV according to steffi ent size. COMPARISON: None. FINDINGS: Image quality: Excellent. ABDOMEN: Lung bases: Lung bases are clear. Heart size is normal. There is a small hiatal hernia. Solid organs: Liver demonstrates nodular contour suggesting cirrhosis. There are innumerable small n odules in liver. A 4.5 x 6.1 cm heterogeneous mass is noted in the inferior right hepatic lobe (segme nt 5). Liver and spleen are normal in size and enhancement. Gallbladder is unremarkable. Biliary sy stem is non dilated. Pancreas enhances normally. No adrenal nodules. Kidneys demonstrate normal si ze and enhancement, without hydronephrosis. Peritoneum and bowel: There is a moderate-to- amount of ascites. Gastric wall appears thickened with increased mucosal enhancement. Mild small bowel and colonic wall thickening. Bowel loops demonstrate normal caliber. No free air. Nodes and vessels: No retroperitoneal or mesenteric adenopathy by size criteria. Aorta and inferior vena cava are normal in size. Moderate atherosclerotic calcifications. Miscellaneous: No ventral hernias. PELVIS: Genitourinary: Bladder is contracted with a Figueroa catheter. Miscellaneous: No inguinal hernias or adenopathy. Bones: No suspicious bony lesions. No vertebral body compression fractures. IMPRESSION: 1. Markedly abnormal appearance of liver suggesting cirrhosis. 2. A 4.5 x 6.1 cm heterogeneously enhancing nodule in the inferior right hepatic lobe suspicious for neoplasm HCC. Innumerable small nodules are present in the liver, which may be secondary to metastasi s or an infiltrative process. 3. [id number]-[id number] amount of ascites. 4. There is gastric wall thickening and mild thickening of small bowel and colon. This finding may be secondary to hypoalbuminemia related to liver disease. Differential diagnoses include infectious or inflammatory process. No significant discrepancy with the preliminary interpretation. Reviewed by: Olga Flores MD on 04/22/2020 9:22 AM PST Approved by: Olga Flores MD on 04/22/2020 9:22 AM PST Station ID: [id number]
[2020-04-22 09:36] LABS: CALCIUM 6.7 mg/dL (8.5-10.3); CREATININE 0.6 mg/dL (0.4-1.0)
--- NOTE | 2020-04-22 09:45 | XRAY Report ---
PROCEDURE: Chest 1 View X-Ray INDICATIONS: check CVC placement TECHNIQUE: One view of the chest was acquired. COMPARISON: Chest x-ray 04/21/2020 FINDINGS: Surgical changes and devices: Right-sided central venous catheter has been placed with distal tip pro jecting over the distal SVC. Lungs and pleura: No pleural effusions or pneumothorax. Lungs are clear. Mediastinum: Mediastinal contours appear normal. Heart size is normal. Bones and chest wall: No suspicious bony lesions. Overlying soft tissues appear unremarkable. Old left-sided rib fractures are noted. IMPRESSION: Central line placement as above. The above findings are concordant with preliminary report. Reviewed by: Whitney Huynh MD on 04/22/2020 9:44 AM [facility] Approved by: Whitney Huynh MD on 04/22/2020 9:44 AM [facility] Station ID: [id number]
[2020-04-22] MEDS: FOLIC ACID INJ 1 MG, THIAMINE INJ 100 MG in SODIUM CHLORIDE 0.9% 1,000 ML IV SCH ×2 (10:45→22:10)
[2020-04-22] MEDS ORDERED: PANTOPRAZOLE 40 MG VIAL IVP SCH (11:00)
[2020-04-22] MEDS ORDERED: CALCIUM GLUCONATE 1,000 MG in SODIUM CHLORIDE 0.9% 50 ML IV ONE (11:00)
--- NOTE | 2020-04-22 12:18 | PHARMACY PROGRESS NOTE ---
- Best Possible Medication History Admit Date and Time: 04/22/20 0101 Processed by: Pharmacy Medication History completed: Yes Patient Interview: Completed Secondary Source(s): Pharmacy records (PATIENT INTERVIEWED BY PHARMACY. PATIENT CONFIRMS SHE DOES NOT TAKE HOME MEDICATIONS ), Insurance records As the person ultimately responsible for medication therapy, providers are able to order a medication from an existing home medication list in [facility] via the "Reconcile Routine" prior to Confirmation of that medication by network support administrator. Such practice is discouraged except when the physician, in their clinical judgment, deems that a medical need exists for a medication without regard to previous use.
[2020-04-22] MEDS ORDERED: VANCOMYCIN INJ 0.75 GM in SODIUM CHLORIDE 0.9% 250 ML IV SCH (14:00)
[2020-04-22] MEDS ORDERED: VANCOMYCIN INJ 750 MG in SODIUM CHLORIDE 0.9% 250 ML IV SCH (14:00)
[2020-04-22 16:33] LABS: HGB - HEMOGLOBIN 9.2 g/dL (12.0-16.0)
[2020-04-22] MEDS: MORPHINE 2 MG/ML CARPUJECT IVP PRN ×2 (17:19→19:56)
--- NOTE | 2020-04-22 18:19 | PROVIDER PROGRESS NOTE ---
Hospitalist Cross-cover Note - Cross-Cover Note Cross-Cover Note: The patient was admitted this morning, the CT the abdomen pelvis came back concerning for hepatocellular carcinoma with multiple liver nodules as well as evidence of cirrhosis. There was also moderate to large amount of ascites. Given her hypotension and anemia, she was given 2 units of packed red blood cells. There was concern for possible hemorrhage from the cancer and so I spoke with hepatology at [facility] regarding the potential need of transfer. After reviewing the images with them over the phone and her clinical findings, there was low suspicion for active bleeding and they felt that transfer would not be warranted at this time. The supervisor grips n reviewed prior records and states the patient has a history of hepatitis C and had evidence of cirrhosis from a few years ago. The patient's hemoglobin did respond appropri ately to transfusion and her hemodynamics have improved and she has been weaned off of the norepinephrine. I reviewed the CT again with radiology and they feel that the fluid in her abdomen is consistent with ascites and not blood. At this time, we will keep on antibiotics although there is low suspicion for sepsis. We will look to discontinue it over next 24 hours if she continues to clinically improve. Her lactic acid is trending down and we will continue this every 3 hours. We will continue to recheck her hemoglobin this evening and monitor for evidence of bleeding. We will start her on Protonix empirically although low suspicion for variceal bleed at this time given the lack of obvious bleeding. Although her fibrinogen is low and she is elevated INR as well as thrombocytopenia, I suspect is related to her severe liver disease rather than DIC given the lack of obvious bleeding. We will continue to trend her INR and consider FFP and cryoprecipitate if necessary. She has chronic thrombocytopenia going back from last year so we will hold off on transfusion of platelets for the time being.
--- NOTE | 2020-04-22 20:56 | CT Report ---
PROCEDURE: Abdomen/Pelvis WO INDICATIONS: Anemia. Liver mass. Worsening pain. Fever. TECHNIQUE: Noncontrast 5 mm thick sections acquired from the diaphragms to the symphysis. 5 mm coronal and sagi ttal reformats were then performed. For radiation dose reduction, the following was used: automated exposure control, adjustment of mA and/or kV according to patient size. COMPARISON: CT abdomen/pelvis 04/22/2020 at 0500 hours FINDINGS: Image quality: Excellent. ABDOMEN: Lung bases: Trace bilateral pleural effusions are seen with atelectasis of the adjacent lung bases, n ew when compared to the CT from earlier the same day. Heart size is normal. Solid organs: The previously seen partially exophytic mass in the inferior portion of the liver and t he numerous additional smaller masses throughout both lobes of the liver are noted as well seen on th e current exam without intravenous contrast material. Gallbladder contains a small amount of contrast material related to the CT scan performed earlier the same day. Pancreas is normal in contours. The spleen is small in size. No adrenal nodules. Kidneys are normal in size, without hydronephrosis or nephrolithiasis. Contrast material is seen in the renal collecting systems bilaterally and within th e bladder. Peritoneum and bowel: Unenhanced bowel loops demonstrate normal wall thickness and caliber. A modera te to large amount of ascites is seen in the abdomen and pelvis, which measures greater than simple f luid density. Additionally, more dense material is seen in the pouch of Ganesh that may indicate lay ering of blood tinged fluid. The volume of ascites does not appear significantly changed when compare d to the CT from earlier the same day. Nodes and vessels: No retroperitoneal or mesenteric adenopathy by size criteria. Aorta and inferior vena cava are normal in caliber. Atherosclerotic calcifications are seen in the aorta. Miscellaneous: No ventral hernias. PELVIS: Genitourinary: The bladder is decompressed by a Figueroa catheter and contains contrast material and a s mall amount of air. Miscellaneous: No inguinal hernias or adenopathy. Bones: No suspicious bony lesions. No vertebral body compression fractures. Nondisplaced rib fractu res are seen bilaterally with signs of healing changes. IMPRESSION: 1. Moderate to large amount of abdominopelvic ascites measures greater than simple fluid density and may be blood-tinged and/or exudative. The volume of ascites has not significantly changed when nicolasa red to the CT performed earlier the same day. Recommend correlation with serial hemoglobin/hematocrit levels. 2. Multiple liver masses are better demonstrated on the contrast-enhanced CT performed earlier the day, the largest of which is partially exophytic and located in the inferior right hepatic lobe. 3. Nodular appearance of the liver again could indicate cirrhosis. 4. Trace bilateral pleural effusions. 5. Bilateral healing rib fractures. Findings were discussed with the overnight Hospitalist by phone on 04/22/2020 at 8:54 PM. Reviewed by: Dexter Santamaria MD on 04/22/2020 8:54 PM PST Approved by: Dexter Santamaria MD on 04/22/2020 8:54 PM PST Station ID: [id number]
[2020-04-22 22:03] LABS: HGB - HEMOGLOBIN 8.8 g/dL (12.0-16.0)
[2020-04-22] MEDS ORDERED: SODIUM CHLORIDE 0.9% 1,000 ML IV ONE (22:11)
--- NOTE | 2020-04-22 23:00 | DISCHARGE SUMMARY ---
"Discharge Summary Admit Date: 04/22/20 Discharge Date: 04/22/20 Discharging Provider: Khalida Dodd MD Primary Care Provider: She has no PCP Code Status: Attempt Resuscitation Condition at Discharge: Critical Discharge Disposition: 02 Transfer Acute Care Hosp Discharge Facility Name: [facility] - DIAGNOSES Discharge Diagnoses with Status of Each Condition: 1. intra-abdominal hemorrhage from liver 2. Focal hepatic necrosis of tumor 3. Hepatic neoplasm of uncertain behavior, multiple 4. Alcoholic liver disease with ascites 5. Alcohol abuse with acute intoxication 6. Shock 7. Lactic acidosis 8. Acute blood loss anemia from hemorrhage 9. hypokalemia 10. Hyperglycemia - HPI History of Present Illness: This is a 59-year-old female that was brought in by ambulance. I am unable to speak to her and have tried contacting him several times at [phone] which is the number on her face sheet. I have left messages. History is obtained from Dr. Kidd and nursing staff. Patient is a known alcoholic according to the . She usually drinks beer. She usually drinks with her neighbors. She went over to her neighbor's house as usual. She came back from the neighbor's house and laid down and became unresponsive. There is no antecedent history of infection, fever, falls, or other intake of other substances. He called EMS. He told EMS that she does not do well with hard liquor and postulates that she may have drank something else besides beer. She is awake enough to answer some questions. She used to see a Dr. Nikita Knight in [place]. But he retired so long ago she cannot remember when he retired. [place] She does not remember being sick with anything. She denies any antecedent symptoms of chest pain, cough, shortness of breath. She has not fallen down. She denies taking anything other than beer.She tells me that she did not drink any more than usual and drink the same amount of beer with her neighbors. She has had no recent travel. Essentially no change in her healthcare status until scotty's episode of unconsciousness was because her to call EMS.Now that she has had 2 L, a little bit more awake, she tells me that she has generalized abdominal pain across her upper abdomen. It seems to be getting worse. She does not remember hitting anything, or having abdominal pain before. Nursing staff made an attempt to call the as well. Unsuccessful. Initial blood pressure 55/44. Heart rate 101. Temperature 36.1. 25 respiration rate. 98% on room air. She knew her own name, was very apologetic since she had been incontinent of stool and it was on her pants, underwear, and over most of her body. Glucose was 136. She was awake, following commands, but confused. Calm and cooperative. She had nausea and vomiting. Was pale, lethargic. Dr. Kidd gave her IV fluids. Bolus to bring up her blood pressu re. It came up to the 70 systolic. He then continue the work-up for hypotension and check troponins, blood cultures, urine cultures, CBC. Troponins were normal. Hemoglobin was 8.9. White cell count normal. Lactic acid 7.7. Blood screen negative for all toxic screens. Serum ethyl alcohol 374.2. Urinalysis had a small amount of leukocyte esterase, moderate bacteria and rare squamous cells. Chest x-ray was negative. Because of her low blood pressure in the emergency room, minimally responsive to IV fluids, Dr. Kidd asked that anesthesia please come place a central line. I have been asked to admit the patient. Up to now resuscitation has been fluids. Antibiotics have been ordered but not quite given yet. Waiting for the central line. History - Past Medical History Cardiovascular: reports: None Respiratory: reports: None Neuro: reports: None Endocrine/Autoimmune: reports: None GI: reports: None [employer]IST[employer]: reports: Other (G3, P3 with hysterectomy) : reports: None HEENT: reports: Other (Edentulous, no dentures) Psych: reports: None Musculoskeletal: reports: Chronic back pain (She fell off a scaffolding 14 years ago, and has been on disability ever since then for severe back pain, neck pain, shoulder pain) Derm: reports: None Other Past Medical History: At this time the patient is unable to give a cogent lucid history - Past Surgical History /[employer]IST[employer]: reports: Hysterectomy Other past surgical history: Unable to get history - CONSULTS | PROCEDURES Procedures: 1. Chest x-ray without acute cardiopulmonary abnormalities. Repeat chest x-ray after central line placement shows no pneumothorax. 2. Abdomen and pelvis CT #1 showed a nodular contour suggesting cirrhosis. Innumerable small nodules of the liver. However a 4.5 x 6.1 cm mass in the inferior right hepatic lobe suspicious for hepatocellular carcinoma. Mass may be necrotic. Moderate to large amount of ascites. Gastric wall thickening and mild thickening of the small bowel and colon. No gastric or esophageal varices seen. She then had a second abdomen and pelvis and CT because of increased abdominal pain with the same findings however there is suspicion that the ascitic fluid is now more hyperdense indicating blood in the cavity from bleeding presumed to be from the mass seen on CT #1. 3. Central line placement. 4. Head CT without acute intracranial pathology. Cerebral volume loss and periventricular white matter chronic small vessel ischemic changes. 5. Transfusion of 2 units of packed cells 6. Transfusion of a unit of FFP as the patient is being transferred to [place] [facility] COURSE Hospital Course: She presented as severe hypotension with altered mental status in the face of known alcoholic liver disease and alcohol abuse. She was acutely intoxicated. We went through the differential of infection, IL, bleeding, recreational substance overdose etc. She had severe lactic acidosis. We placed a central line and started fluid resuscitation. We also gave her empiric antibiotic the rapy in the early phase of treatment not knowing why she has severe lactic acidosis with hypotension. Urinalysis was negative, chest x-ray was negative, and she did have abdominal pain that was a 5 out of a 10. After CT of the abdomen was obtained, there was suggestion that her liver mass may be necrotic. Hemoglobin dropped from 8.9-->5.5 and she was transfused 2 units. Started on Levophed. Given triple antibiotic empiric therapy. With all of this she stabilized with good urine output, and normal blood pressure, and Levophed was able to be weaned off. Serial troponins were negative. Lactic acid initially went up to 9.6 with these initial measures, but finally came down to normal by 7 in the evening on the day of discharge and was 1.9. She did receive thiamine and folate. She wishes to be a full code. Iron studies showed her to have no iron deficiency. There is no hematochezia or hematemesis. Urine tox screen was negative for recreational substances. Ethyl alcohol level was 374.2. Covid screen was negative. MRSA nasal screen was negative. Troponin high-sensitivity is 4.9. Our screen has you going up to 14.8 before you were positive. Total bili is 0.5. INR is 1.6. Initial glucose is 177. Initial potassium 2.7. Blood and urine cultures have been received and are pending. By then we were able to speak to her . The correct number in the chart should be [phone]. He did not have anything to offer to change his current history. She spiked a temperature of 38.1 in the afternoon. But otherwise remained hemodynamically stable. At approximately 7:30 in the evening to 8:00 in the evening the patient status changed. Her previous stable abdominal pain had now increased tremendously. She stated it was a 10 out of a 10. She now had peritoneal findings with rebound and guarding diffusely. Nonfocal. She had hypoactive bowel sounds. Blood pressure was 130/76 initially and dropped to 100/68. Pulse was 99 and went 108. Repeat hemoglobin which had been 10.0 after 2 units of transfusion was now 8.8. As such FFP was ordered. A repeat CT scan showed the same findings as the previous CT. No change in ascitic fluid or amount of fluid in the abdomen. However the density of the fluid is changed in radiology feels that she is bleeding, most likely from the liver tumor. I spoke to our general surgeon, Kinsey Vela, and the patient's best treatment would be interventional radiology to stop the bleeding. I then spoke to [facility] supervisor. I spoke to interventional radiology (Dr. Hammond), hospitalist on [facility] (Dr. Ferrer), and finally ICU on-call (Dr. Burnette) and she was accepted in transfer. Dr. Hammond would like the patient to be n.p.o. Check INR in the morning. Plan for the patient to be seen by interventional radiology in the morning. At discharge the patient is 5 foot 3 and weighs 45 kg. She looks much, much, much older than stated age. Edentulous. Alert and able to follow commands. Neck has a central line in place. Lungs have shallow unlabored respiration with an increased respiratory rate of 26 and no use of accessory muscles. She says she is breathing hard because of her abdominal pain. She has a regular rate and rhythm. Systolic ejection murmur. The abdomen is firm, hypoactive bowel sounds, diffusely tender in all quadrants. She cries out with minimal palpation. Last night she was able to let me palpate her abdomen with discomfort and grimacing but not with what she has right now. Extremities have clubbing of the fingertips. She has dry hyperkeratotic skin of the shins. Diffuse, severe muscle wasting of her extremities. No encephalopathy. She is receiving FFP upon transfer. She is transferred in in critical condition. Greater than 30 minutes was spent coordinating discharge. - ALLERGIES Allergies/Adverse Reactions: Allergies Allergy/AdvReac Type Severity Reaction Status Date / Time No Known Drug Allergies Allergy Verified 04/22/20 08:47 - MEDICATIONS Home Medications: Ambulatory Orders Medication Instructions Recorded Confirmed No Known Home Medications 04/22/20 04/22/20 - LABS Result Diagrams: 04/22/20 21:59 04/22/20 09:18 - SEPSIS Possible source of Sepsis: Unknown"
--- NOTE | 2020-04-22 23:10 | PROVIDER PROGRESS NOTE ---
Objective - Vital Signs/Intake & Output Vital Signs: Vital Signs x48h Temp Pulse Resp BP Pulse Ox 04/22/20 20:00 37.7 C 108 H 26 H 100/68 96 04/22/20 19:00 99 27 H 130/76 04/22/20 18:00 103 H 124/72 100 04/22/20 17:00 144 H 36 H 137/78 H 100 04/22/20 16:00 38.1 C H 103 H 27 H 123/73 100 Intake & Output: Intake & Output 04/19/20 04/20/20 04/21/20 04/22/20 23:59 23:59 23:59 23:59 Intake Total 1000 6091.681 Output Total 1390 Balance 1000 4701.681 - Lab Results Fish Bones: 04/22/20 21:59 04/22/20 09:18 Other Labs: Lab Results x24hrs 04/22/20 04/22/20 04/22/20 Range/Units 21:59 18:56 16:26 WBC (4.8-10.8) x10^3/uL RBC (4.20-5.40) 10^6/uL Hgb 8.8 L (12.0-16.0) g/dL Hct 26.2 L (37.0-47.0) % MCV (81.0-99.0) fL MCH (27.0-31.0) pg MCHC (32.0-36.0) g/dL RDW (12.0-15.0) % Plt Count (130-450) 10^3/uL MPV (7.9-10.8) fL Reticulocyte % (Auto) (0.5-2.3) % Neut # (Auto) (1.5-6.6) 10^3/uL Lymph # (Auto) (1.5-3.5) 10^3/uL Love # (Auto) (0.0-1.0) 10^3/uL Eos # (Auto) (0.0-0.7) 10^3/uL Baso # (Auto) (0.0-0.1) 10^3/uL Absolute Nucleated RBC x10^3/uL Nucleated RBC % /100WBC Absolute Retic (0.020-0.110) 10^6/uL PT (9.9-12.6) secs INR (0.8-1.2) APTT (24.9-33.3) secs Fibrinogen (220-496) mg/dL Sodium (135-145) mmol/L Potassium (3.5-5.0) mmol/L Chloride (101-111) mmol/L Carbon Dioxide (21-32) mmol/L Anion Gap (6-13) BUN (6-20) mg/dL Creatinine (0.4-1.0) mg/dL Estimated GFR (MDRD) (>89) Glucose (70-100) mg/dL Lactic Acid 1.9 2.6 H (0.5-2.2) mmol/L Calcium (8.5-10.3) mg/dL Magnesium (1.7-2.8) mg/dL Iron (28-170) ug/dL TIBC (250-450) ug/dL % Saturation (20-50) % Transferrin (192-382) mg/dL Ferritin (11.0-306.8) ng/mL Ammonia (7-35) umol/L Lactate Dehydrogenase (91-225) IU/L Troponin I High Sens (2.3-14.8) ng/L C-Reactive Protein (0-1.0) mg/dL Vitamin B12 (180-914) pg/mL Folate (5.90 - >24.8) ng/mL Cortisol ug/dL Urine Color Urine Clarity (CLEAR) Urine pH (5.0-7.5) PH Ur Specific [place] (1.002-1.030) Urine Protein (NEGATIVE) mg/dL Urine Glucose (UA) (NEGATIVE) mg/dL Urine Ketones (NEGATIVE) mg/dL Urine Occult Blood (NEGATIVE) Urine Nitrite (NEGATIVE) Urine Bilirubin (NEGATIVE) Urine Urobilinogen (NORMAL) E.U./dL Ur Leukocyte Esterase (NEGATIVE) Urine RBC (0-5) /HPF Urine WBC (0-5) /HPF Ur Squamous Epith Cells (<= Few) Urine Bacteria (None Seen) /HPF Ur Microscopic Review Urine Culture Comments Nasal Adenovirus (PCR) Nasal B. parapertussis DNA (PCR) Nasal Coronavir 229E PCR Nasal Coronavir HKU1 PCR Nasal Coronavir NL63 PCR Nasal Coronavir OC43 PCR Nasal Enterovir/Rhinovir PCR Nasal Influenza B PCR Nasal Influenza A PCR Nasal Parainfluen 1 PCR Nasal Parainfluen 2 PCR Nasal Parainfluen 3 PCR Nasal Parainfluen 4 PCR Nasal RSV (PCR) Nasal Screen MRSA (PCR) (NEGATIVE) Nasal B.pertussis DNA PCR Nasal C.pneumoniae (PCR) Kleber Human Metapneumo PCR Nasal M.pneumoniae (PCR) Nasal SARS-CoV-2 (PCR) Urine Opiates Screen (NEGATIVE) Ur Oxycodone Screen (NEGATIVE) Urine Methadone Screen (NEGATIVE) Ur Propoxyphene Screen (NEGATIVE) Ur Barbiturates Screen (NEGATIVE) Ur Tricyclics Screen (NEGATIVE) Ur Phencyclidine Scrn (NEGATIVE) Ur Amphetamine Screen (NEGATIVE) U Methamphetamines Scrn (NEGATIVE) U Benzodiazepines Scrn (NEGATIVE) Urine Cocaine Screen (NEGATIVE) U Cannabinoids Screen (NEGATIVE) Blood Type Blood Type Recheck Antibody Screen Crossmatch IS Only 04/22/20 04/22/20 04/22/20 Range/Units 16:26 13:04 13:04 WBC (4.8-10.8) x10^3/uL RBC (4.20-5.40) 10^6/uL Hgb 9.2 L (12.0-16.0) g/dL Hct 26.8 L (37.0-47.0) % MCV (81.0-99.0) fL MCH (27.0-31.0) pg MCHC (32.0-36.0) g/dL RDW (12.0-15.0) % Plt Count (130-450) 10^3/uL MPV (7.9-10.8) fL Reticulocyte % (Auto) (0.5-2.3) % Neut # (Auto) (1.5-6.6) 10^3/uL Lymph # (Auto) (1.5-3.5) 10^3/uL Love # (Auto) (0.0-1.0) 10^3/uL Eos # (Auto) (0.0-0.7) 10^3/uL Baso # (Auto) (0.0-0.1) 10^3/uL Absolute Nucleated RBC x10^3/uL Nucleated RBC % /100WBC Absolute Retic (0.020-0.110) 10^6/uL PT (9.9-12.6) secs INR (0.8-1.2) APTT (24.9-33.3) secs Fibrinogen (220-496) mg/dL Sodium (135-145) mmol/L Potassium (3.5-5.0) mmol/L Chloride (101-111) mmol/L Carbon Dioxide (21-32) mmol/L Anion Gap (6-13) BUN (6-20) mg/dL Creatinine (0.4-1.0) mg/dL Estimated GFR (MDRD) (>89) Glucose (70-100) mg/dL Lactic Acid 3.9 H* (0.5-2.2) mmol/L Calcium (8.5-10.3) mg/dL Magnesium (1.7-2.8) mg/dL Iron (28-170) ug/dL TIBC (250-450) ug/dL % Saturation (20-50) % Transferrin (192-382) mg/dL Ferritin (11.0-306.8) ng/mL Ammonia 29.4 (7-35) umol/L Lactate Dehydrogenase (91-225) IU/L Troponin I High Sens (2.3-14.8) ng/L C-Reactive Protein (0-1.0) mg/dL Vitamin B12 (180-914) pg/mL Folate (5.90 - >24.8) ng/mL Cortisol ug/dL Urine Color Urine Clarity (CLEAR) Urine pH (5.0-7.5) PH Ur Specific [place] (1.002-1.030) Urine Protein (NEGATIVE) mg/dL Urine Glucose (UA) (NEGATIVE) mg/dL Urine Ketones (NEGATIVE) mg/dL Urine Occult Blood (NEGATIVE) Urine Nitrite (NEGATIVE) Urine Bilirubin (NEGATIVE) Urine Urobilinogen (NORMAL) E.U./dL Ur Leukocyte Esterase (NEGATIVE) Urine RBC (0-5) /HPF Urine WBC (0-5) /HPF Ur Squamous Epith Cells (<= Few) Urine Bacteria (None Seen) /HPF Ur Microscopic Review Urine Culture Comments Nasal Adenovirus (PCR) Nasal B. parapertussis DNA (PCR) Nasal Coronavir 229E PCR Nasal Coronavir HKU1 PCR Nasal Coronavir NL63 PCR Nasal Coronavir OC43 PCR Nasal Enterovir/Rhinovir PCR Nasal Influenza B PCR Nasal Influenza A PCR Nasal Parainfluen 1 PCR Nasal Parainfluen 2 PCR Nasal Parainfluen 3 PCR Nasal Parainfluen 4 PCR Nasal RSV (PCR) Nasal Screen MRSA (PCR) (NEGATIVE) Nasal B.pertussis DNA PCR Nasal C.pneumoniae (PCR) Kleber Human Metapneumo PCR Nasal M.pneumoniae (PCR) Nasal SARS-CoV-2 (PCR) Urine Opiates Screen (NEGATIVE) Ur Oxycodone Screen (NEGATIVE) Urine Methadone Screen (NEGATIVE) Ur Propoxyphene Screen (NEGATIVE) Ur Barbiturates Screen (NEGATIVE) Ur Tricyclics Screen (NEGATIVE) Ur Phencyclidine Scrn (NEGATIVE) Ur Amphetamine Screen (NEGATIVE) U Methamphetamines Scrn (NEGATIVE) U Benzodiazepines Scrn (NEGATIVE) Urine Cocaine Screen (NEGATIVE) U Cannabinoids Screen (NEGATIVE) Blood Type Blood Type Recheck Antibody Screen Crossmatch IS Only 04/22/20 04/22/20 04/22/20 Range/Units 11:08 09:40 09:18 WBC (4.8-10.8) x10^3/uL RBC (4.20-5.40) 10^6/uL Hgb 10.0 L (12.0-16.0) g/dL Hct 29.8 L (37.0-47.0) % MCV (81.0-99.0) fL MCH (27.0-31.0) pg MCHC (32.0-36.0) g/dL RDW (12.0-15.0) % Plt Count (130-450) 10^3/uL MPV (7.9-10.8) fL Reticulocyte % (Auto) (0.5-2.3) % Neut # (Auto) (1.5-6.6) 10^3/uL Lymph # (Auto) (1.5-3.5) 10^3/uL Love # (Auto) (0.0-1.0) 10^3/uL Eos # (Auto) (0.0-0.7) 10^3/uL Baso # (Auto) (0.0-0.1) 10^3/uL Absolute Nucleated RBC x10^3/uL Nucleated RBC % /100WBC Absolute Retic (0.020-0.110) 10^6/uL PT (9.9-12.6) secs INR (0.8-1.2) APTT (24.9-33.3) secs Fibrinogen (220-496) mg/dL Sodium (135-145) mmol/L Potassium (3.5-5.0) mmol/L Chloride (101-111) mmol/L Carbon Dioxide (21-32) mmol/L Anion Gap (6-13) BUN (6-20) mg/dL Creatinine (0.4-1.0) mg/dL Estimated GFR (MDRD) (>89) Glucose (70-100) mg/dL Lactic Acid 5.2 H* (0.5-2.2) mmol/L Calcium (8.5-10.3) mg/dL Magnesium (1.7-2.8) mg/dL Iron (28-170) ug/dL TIBC (250-450) ug/dL % Saturation (20-50) % Transferrin (192-382) mg/dL Ferritin (11.0-306.8) ng/mL Ammonia (7-35) umol/L Lactate Dehydrogenase (91-225) IU/L Troponin I High Sens (2.3-14.8) ng/L C-Reactive Protein (0-1.0) mg/dL Vitamin B12 (180-914) pg/mL Folate (5.90 - >24.8) ng/mL Cortisol ug/dL Urine Color Urine Clarity (CLEAR) Urine pH (5.0-7.5) PH Ur Specific [place] (1.002-1.030) Urine Protein (NEGATIVE) mg/dL Urine Glucose (UA) (NEGATIVE) mg/dL Urine Ketones (NEGATIVE) mg/dL Urine Occult Blood (NEGATIVE) Urine Nitrite (NEGATIVE) Urine Bilirubin (NEGATIVE) Urine Urobilinogen (NORMAL) E.U./dL Ur Leukocyte Esterase (NEGATIVE) Urine RBC (0-5) /HPF Urine WBC (0-5) /HPF Ur Squamous Epith Cells (<= Few) Urine Bacteria (None Seen) /HPF Ur Microscopic Review Urine Culture Comments Nasal Adenovirus (PCR) Nasal B. parapertussis DNA (PCR) Nasal Coronavir 229E PCR Nasal Coronavir HKU1 PCR Nasal Coronavir NL63 PCR Nasal Coronavir OC43 PCR Nasal Enterovir/Rhinovir PCR Nasal Influenza B PCR Nasal Influenza A PCR Nasal Parainfluen 1 PCR Nasal Parainfluen 2 PCR Nasal Parainfluen 3 PCR Nasal Parainfluen 4 PCR Nasal RSV (PCR) Nasal Screen MRSA (PCR) (NEGATIVE) Nasal B.pertussis DNA PCR Nasal C.pneumoniae (PCR) Kleber Human Metapneumo PCR Nasal M.pneumoniae (PCR) Nasal SARS-CoV-2 (PCR) Urine Opiates Screen (NEGATIVE) Ur Oxycodone Screen (NEGATIVE) Urine Methadone Screen (NEGATIVE) Ur Propoxyphene Screen (NEGATIVE) Ur Barbiturates Screen (NEGATIVE) Ur Tricyclics Screen (NEGATIVE) Ur Phencyclidine Scrn (NEGATIVE) Ur Amphetamine Screen (NEGATIVE) U Methamphetamines Scrn (NEGATIVE) U Benzodiazepines Scrn (NEGATIVE) Urine Cocaine Screen (NEGATIVE) U Cannabinoids Screen (NEGATIVE) Blood Type A POSITIVE Blood Type Recheck Antibody Screen NEGATIVE Crossmatch IS Only 04/22/20 04/22/20 04/22/20 Range/Units 09:18 09:18 06:15 WBC (4.8-10.8) x10^3/uL RBC (4.20-5.40) 10^6/uL Hgb (12.0-16.0) g/dL Hct (37.0-47.0) % MCV (81.0-99.0) fL MCH (27.0-31.0) pg MCHC (32.0-36.0) g/dL RDW (12.0-15.0) % Plt Count (130-450) 10^3/uL MPV (7.9-10.8) fL Reticulocyte % (Auto) (0.5-2.3) % Neut # (Auto) (1.5-6.6) 10^3/uL Lymph # (Auto) (1.5-3.5) 10^3/uL Love # (Auto) (0.0-1.0) 10^3/uL Eos # (Auto) (0.0-0.7) 10^3/uL Baso # (Auto) (0.0-0.1) 10^3/uL Absolute Nucleated RBC x10^3/uL Nucleated RBC % /100WBC Absolute Retic (0.020-0.110) 10^6/uL PT (9.9-12.6) secs INR (0.8-1.2) APTT (24.9-33.3) secs Fibrinogen (220-496) mg/dL Sodium 134 L (135-145) mmol/L Potassium 4.8 (3.5-5.0) mmol/L Chloride 109 (101-111) mmol/L Carbon Dioxide 14 L (21-32) mmol/L Anion Gap 11.0 (6-13) BUN 10 (6-20) mg/dL Creatinine 0.6 (0.4-1.0) mg/dL Estimated GFR (MDRD) 102 (>89) Glucose 160 H (70-100) mg/dL Lactic Acid 7.9 H* (0.5-2.2) mmol/L Calcium 6.7 L (8.5-10.3) mg/dL Magnesium (1.7-2.8) mg/dL Iron (28-170) ug/dL TIBC (250-450) ug/dL % Saturation (20-50) % Transferrin (192-382) mg/dL Ferritin (11.0-306.8) ng/mL Ammonia (7-35) umol/L Lactate Dehydrogenase (91-225) IU/L Troponin I High Sens (2.3-14.8) ng/L C-Reactive Protein (0-1.0) mg/dL Vitamin B12 (180-914) pg/mL Folate > 49.60 (5.90 - >24.8) ng/mL Cortisol ug/dL Urine Color Urine Clarity (CLEAR) Urine pH (5.0-7.5) PH Ur Specific [place] (1.002-1.030) Urine Protein (NEGATIVE) mg/dL Urine Glucose (UA) (NEGATIVE) mg/dL Urine Ketones (NEGATIVE) mg/dL Urine Occult Blood (NEGATIVE) Urine Nitrite (NEGATIVE) Urine Bilirubin (NEGATIVE) Urine Urobilinogen (NORMAL) E.U./dL Ur Leukocyte Esterase (NEGATIVE) Urine RBC (0-5) /HPF Urine WBC (0-5) /HPF Ur Squamous Epith Cells (<= Few) Urine Bacteria (None Seen) /HPF Ur Microscopic Review Urine Culture Comments Nasal Adenovirus (PCR) Nasal B. parapertussis DNA (PCR) Nasal Coronavir 229E PCR Nasal Coronavir HKU1 PCR Nasal Coronavir NL63 PCR Nasal Coronavir OC43 PCR Nasal Enterovir/Rhinovir PCR Nasal Influenza B PCR Nasal Influenza A PCR Nasal Parainfluen 1 PCR Nasal Parainfluen 2 PCR Nasal Parainfluen 3 PCR Nasal Parainfluen 4 PCR Nasal RSV (PCR) Nasal Screen MRSA (PCR) (NEGATIVE) Nasal B.pertussis DNA PCR Nasal C.pneumoniae (PCR) Kleber Human Metapneumo PCR Nasal M.pneumoniae (PCR) Nasal SARS-CoV-2 (PCR) Urine Opiates Screen (NEGATIVE) Ur Oxycodone Screen (NEGATIVE) Urine Methadone Screen (NEGATIVE) Ur Propoxyphene Screen (NEGATIVE) Ur Barbiturates Screen (NEGATIVE) Ur Tricyclics Screen (NEGATIVE) Ur Phencyclidine Scrn (NEGATIVE) Ur Amphetamine Screen (NEGATIVE) U Methamphetamines Scrn (NEGATIVE) U Benzodiazepines Scrn (NEGATIVE) Urine Cocaine Screen (NEGATIVE) U Cannabinoids Screen (NEGATIVE) Blood Type Blood Type Recheck Antibody Screen Crossmatch IS Only 04/22/20 04/22/20 04/22/20 Range/Units 06:15 02:08 02:08 WBC (4.8-10.8) x10^3/uL RBC (4.20-5.40) 10^6/uL Hgb (12.0-16.0) g/dL Hct (37.0-47.0) % MCV (81.0-99.0) fL MCH (27.0-31.0) pg MCHC (32.0-36.0) g/dL RDW (12.0-15.0) % Plt Count (130-450) 10^3/uL MPV (7.9-10.8) fL Reticulocyte % (Auto) (0.5-2.3) % Neut # (Auto) (1.5-6.6) 10^3/uL Lymph # (Auto) (1.5-3.5) 10^3/uL Love # (Auto) (0.0-1.0) 10^3/uL Eos # (Auto) (0.0-0.7) 10^3/uL Baso # (Auto) (0.0-0.1) 10^3/uL Absolute Nucleated RBC x10^3/uL Nucleated RBC % /100WBC Absolute Retic (0.020-0.110) 10^6/uL PT (9.9-12.6) secs INR (0.8-1.2) APTT (24.9-33.3) secs Fibrinogen (220-496) mg/dL Sodium (135-145) mmol/L Potassium (3.5-5.0) mmol/L Chloride (101-111) mmol/L Carbon Dioxide (21-32) mmol/L Anion Gap (6-13) BUN (6-20) mg/dL Creatinine (0.4-1.0) mg/dL Estimated GFR (MDRD) (>89) Glucose (70-100) mg/dL Lactic Acid (0.5-2.2) mmol/L Calcium (8.5-10.3) mg/dL Magnesium (1.7-2.8) mg/dL Iron (28-170) ug/dL TIBC (250-450) ug/dL % Saturation (20-50) % Transferrin (192-382) mg/dL Ferritin 1591.0 H (11.0-306.8) ng/mL Ammonia (7-35) umol/L Lactate Dehydrogenase 435 H (91-225) IU/L Troponin I High Sens (2.3-14.8) ng/L C-Reactive Protein (0-1.0) mg/dL Vitamin B12 809 (180-914) pg/mL Folate (5.90 - >24.8) ng/mL Cortisol ug/dL Urine Color Urine Clarity (CLEAR) Urine pH (5.0-7.5) PH Ur Specific [place] (1.002-1.030) Urine Protein (NEGATIVE) mg/dL Urine Glucose (UA) (NEGATIVE) mg/dL Urine Ketones (NEGATIVE) mg/dL Urine Occult Blood (NEGATIVE) Urine Nitrite (NEGATIVE) Urine Bilirubin (NEGATIVE) Urine Urobilinogen (NORMAL) E.U./dL Ur Leukocyte Esterase (NEGATIVE) Urine RBC (0-5) /HPF Urine WBC (0-5) /HPF Ur Squamous Epith Cells (<= Few) Urine Bacteria (None Seen) /HPF Ur Microscopic Review Urine Culture Comments Nasal Adenovirus (PCR) Nasal B. parapertussis DNA (PCR) Nasal Coronavir 229E PCR Nasal Coronavir HKU1 PCR Nasal Coronavir NL63 PCR Nasal Coronavir OC43 PCR Nasal Enterovir/Rhinovir PCR Nasal Influenza B PCR Nasal Influenza A PCR Nasal Parainfluen 1 PCR Nasal Parainfluen 2 PCR Nasal Parainfluen 3 PCR Nasal Parainfluen 4 PCR Nasal RSV (PCR) Nasal Screen MRSA (PCR) (NEGATIVE) Nasal B.pertussis DNA PCR Nasal C.pneumoniae (PCR) Kleber Human Metapneumo PCR Nasal M.pneumoniae (PCR) Nasal SARS-CoV-2 (PCR) Urine Opiates Screen (NEGATIVE) Ur Oxycodone Screen (NEGATIVE) Urine Methadone Screen (NEGATIVE) Ur Propoxyphene Screen (NEGATIVE) Ur Barbiturates Screen (NEGATIVE) Ur Tricyclics Screen (NEGATIVE) Ur Phencyclidine Scrn (NEGATIVE) Ur Amphetamine Screen (NEGATIVE) U Methamphetamines Scrn (NEGATIVE) U Benzodiazepines Scrn (NEGATIVE) Urine Cocaine Screen (NEGATIVE) U Cannabinoids Screen (NEGATIVE) Blood Type A POSITIVE Blood Type Recheck Antibody Screen NEGATIVE Crossmatch IS Only See Detail 04/22/20 04/22/20 04/22/20 Range/Units 02:08 02:08 02:08 WBC 6.8 (4.8-10.8) x10^3/uL RBC 1.89 L 1.89 L (4.20-5.40) 10^6/uL Hgb 5.7 L* (12.0-16.0) g/dL Hct 19.3 L* (37.0-47.0) % MCV 102.1 H (81.0-99.0) fL MCH 30.2 (27.0-31.0) pg MCHC 29.5 L (32.0-36.0) g/dL RDW 13.5 (12.0-15.0) % Plt Count 71 L (130-450) 10^3/uL MPV 10.6 (7.9-10.8) fL Reticulocyte % (Auto) 2.37 H (0.5-2.3) % Neut # (Auto) 4.9 (1.5-6.6) 10^3/uL Lymph # (Auto) 1.1 L (1.5-3.5) 10^3/uL Love # (Auto) 0.7 (0.0-1.0) 10^3/uL Eos # (Auto) 0.0 (0.0-0.7) 10^3/uL Baso # (Auto) 0.0 (0.0-0.1) 10^3/uL Absolute Nucleated RBC 0.00 x10^3/uL Nucleated RBC % 0.0 /100WBC Absolute Retic 0.045 (0.020-0.110) 10^6/uL PT (9.9-12.6) secs INR (0.8-1.2) APTT (24.9-33.3) secs Fibrinogen (220-496) mg/dL Sodium (135-145) mmol/L Potassium (3.5-5.0) mmol/L Chloride (101-111) mmol/L Carbon Dioxide (21-32) mmol/L Anion Gap (6-13) BUN (6-20) mg/dL Creatinine (0.4-1.0) mg/dL Estimated GFR (MDRD) (>89) Glucose (70-100) mg/dL Lactic Acid (0.5-2.2) mmol/L Calcium (8.5-10.3) mg/dL Magnesium (1.7-2.8) mg/dL Iron 50 (28-170) ug/dL TIBC 197 L (250-450) ug/dL % Saturation 25 (20-50) % Transferrin 141 L (192-382) mg/dL Ferritin (11.0-306.8) ng/mL Ammonia (7-35) umol/L Lactate Dehydrogenase (91-225) IU/L Troponin I High Sens (2.3-14.8) ng/L C-Reactive Protein (0-1.0) mg/dL Vitamin B12 (180-914) pg/mL Folate (5.90 - >24.8) ng/mL Cortisol ug/dL Urine Color Urine Clarity (CLEAR) Urine pH (5.0-7.5) PH Ur Specific [place] (1.002-1.030) Urine Protein (NEGATIVE) mg/dL Urine Glucose (UA) (NEGATIVE) mg/dL Urine Ketones (NEGATIVE) mg/dL Urine Occult Blood (NEGATIVE) Urine Nitrite (NEGATIVE) Urine Bilirubin (NEGATIVE) Urine Urobilinogen (NORMAL) E.U./dL Ur Leukocyte Esterase (NEGATIVE) Urine RBC (0-5) /HPF Urine WBC (0-5) /HPF Ur Squamous Epith Cells (<= Few) Urine Bacteria (None Seen) /HPF Ur Microscopic Review Urine Culture Comments Nasal Adenovirus (PCR) Nasal B. parapertussis DNA (PCR) Nasal Coronavir 229E PCR Nasal Coronavir HKU1 PCR Nasal Coronavir NL63 PCR Nasal Coronavir OC43 PCR Nasal Enterovir/Rhinovir PCR Nasal Influenza B PCR Nasal Influenza A PCR Nasal Parainfluen 1 PCR Nasal Parainfluen 2 PCR Nasal Parainfluen 3 PCR Nasal Parainfluen 4 PCR Nasal RSV (PCR) Nasal Screen MRSA (PCR) (NEGATIVE) Nasal B.pertussis DNA PCR Nasal C.pneumoniae (PCR) Kleber Human Metapneumo PCR Nasal M.pneumoniae (PCR) Nasal SARS-CoV-2 (PCR) Urine Opiates Screen (NEGATIVE) Ur Oxycodone Screen (NEGATIVE) Urine Methadone Screen (NEGATIVE) Ur Propoxyphene Screen (NEGATIVE) Ur Barbiturates Screen (NEGATIVE) Ur Tricyclics Screen (NEGATIVE) Ur Phencyclidine Scrn (NEGATIVE) Ur Amphetamine Screen (NEGATIVE) U Methamphetamines Scrn (NEGATIVE) U Benzodiazepines Scrn (NEGATIVE) Urine Cocaine Screen (NEGATIVE) U Cannabinoids Screen (NEGATIVE) Blood Type Blood Type Recheck Antibody Screen Crossmatch IS Only 04/22/20 04/22/20 04/22/20 Range/Units 02:00 01:29 01:29 WBC (4.8-10.8) x10^3/uL RBC (4.20-5.40) 10^6/uL Hgb (12.0-16.0) g/dL Hct (37.0-47.0) % MCV (81.0-99.0) fL MCH (27.0-31.0) pg MCHC (32.0-36.0) g/dL RDW (12.0-15.0) % Plt Count (130-450) 10^3/uL MPV (7.9-10.8) fL Reticulocyte % (Auto) (0.5-2.3) % Neut # (Auto) (1.5-6.6) 10^3/uL Lymph # (Auto) (1.5-3.5) 10^3/uL Love # (Auto) (0.0-1.0) 10^3/uL Eos # (Auto) (0.0-0.7) 10^3/uL Baso # (Auto) (0.0-0.1) 10^3/uL Absolute Nucleated RBC x10^3/uL Nucleated RBC % /100WBC Absolute Retic (0.020-0.110) 10^6/uL PT (9.9-12.6) secs INR (0.8-1.2) APTT (24.9-33.3) secs Fibrinogen (220-496) mg/dL Sodium 131 L (135-145) mmol/L Potassium 3.0 L (3.5-5.0) mmol/L Chloride 106 (101-111) mmol/L Carbon Dioxide 13 L (21-32) mmol/L Anion Gap 12.0 (6-13) BUN 9 (6-20) mg/dL Creatinine 0.8 (0.4-1.0) mg/dL Estimated GFR (MDRD) 73 L (>89) Glucose 193 H (70-100) mg/dL Lactic Acid (0.5-2.2) mmol/L Calcium 6.3 L* (8.5-10.3) mg/dL Magnesium (1.7-2.8) mg/dL Iron (28-170) ug/dL TIBC (250-450) ug/dL % Saturation (20-50) % Transferrin (192-382) mg/dL Ferritin (11.0-306.8) ng/mL Ammonia (7-35) umol/L Lactate Dehydrogenase (91-225) IU/L Troponin I High Sens (2.3-14.8) ng/L C-Reactive Protein (0-1.0) mg/dL Vitamin B12 (180-914) pg/mL Folate (5.90 - >24.8) ng/mL Cortisol ug/dL Urine Color Urine Clarity (CLEAR) Urine pH (5.0-7.5) PH Ur Specific [place] (1.002-1.030) Urine Protein (NEGATIVE) mg/dL Urine Glucose (UA) (NEGATIVE) mg/dL Urine Ketones (NEGATIVE) mg/dL Urine Occult Blood (NEGATIVE) Urine Nitrite (NEGATIVE) Urine Bilirubin (NEGATIVE) Urine Urobilinogen (NORMAL) E.U./dL Ur Leukocyte Esterase (NEGATIVE) Urine RBC (0-5) /HPF Urine WBC (0-5) /HPF Ur Squamous Epith Cells (<= Few) Urine Bacteria (None Seen) /HPF Ur Microscopic Review Urine Culture Comments Nasal Adenovirus (PCR) Nasal B. parapertussis DNA (PCR) Nasal Coronavir 229E PCR Nasal Coronavir HKU1 PCR Nasal Coronavir NL63 PCR Nasal Coronavir OC43 PCR Nasal Enterovir/Rhinovir PCR Nasal Influenza B PCR Nasal Influenza A PCR Nasal Parainfluen 1 PCR Nasal Parainfluen 2 PCR Nasal Parainfluen 3 PCR Nasal Parainfluen 4 PCR Nasal RSV (PCR) Nasal Screen MRSA (PCR) NEGATIVE (NEGATIVE) Nasal B.pertussis DNA PCR Nasal C.pneumoniae (PCR) Kleber Human Metapneumo PCR Nasal M.pneumoniae (PCR) Nasal SARS-CoV-2 (PCR) Urine Opiates Screen (NEGATIVE) Ur Oxycodone Screen (NEGATIVE) Urine Methadone Screen (NEGATIVE) Ur Propoxyphene Screen (NEGATIVE) Ur Barbiturates Screen (NEGATIVE) Ur Tricyclics Screen (NEGATIVE) Ur Phencyclidine Scrn (NEGATIVE) Ur Amphetamine Screen (NEGATIVE) U Methamphetamines Scrn (NEGATIVE) U Benzodiazepines Scrn (NEGATIVE) Urine Cocaine Screen (NEGATIVE) U Cannabinoids Screen (NEGATIVE) Blood Type Blood Type Recheck A POSITIVE Antibody Screen Crossmatch IS Only 04/22/20 04/22/20 04/22/20 Range/Units 01:29 01:29 01:29 WBC (4.8-10.8) x10^3/uL RBC (4.20-5.40) 10^6/uL Hgb (12.0-16.0) g/dL Hct (37.0-47.0) % MCV (81.0-99.0) fL MCH (27.0-31.0) pg MCHC (32.0-36.0) g/dL RDW (12.0-15.0) % Plt Count (130-450) 10^3/uL MPV (7.9-10.8) fL Reticulocyte % (Auto) (0.5-2.3) % Neut # (Auto) (1.5-6.6) 10^3/uL Lymph # (Auto) (1.5-3.5) 10^3/uL Love # (Auto) (0.0-1.0) 10^3/uL Eos # (Auto) (0.0-0.7) 10^3/uL Baso # (Auto) (0.0-0.1) 10^3/uL Absolute Nucleated RBC x10^3/uL Nucleated RBC % /100WBC Absolute Retic (0.020-0.110) 10^6/uL PT 17.7 H (9.9-12.6) secs INR 1.6 H (0.8-1.2) APTT 37.2 H (24.9-33.3) secs Fibrinogen 115 L (220-496) mg/dL Sodium (135-145) mmol/L Potassium (3.5-5.0) mmol/L Chloride (101-111) mmol/L Carbon Dioxide (21-32) mmol/L Anion Gap (6-13) BUN (6-20) mg/dL Creatinine (0.4-1.0) mg/dL Estimated GFR (MDRD) (>89) Glucose (70-100) mg/dL Lactic Acid 9.6 H* (0.5-2.2) mmol/L Calcium (8.5-10.3) mg/dL Magnesium (1.7-2.8) mg/dL Iron (28-170) ug/dL TIBC (250-450) ug/dL % Saturation (20-50) % Transferrin (192-382) mg/dL Ferritin (11.0-306.8) ng/mL Ammonia (7-35) umol/L Lactate Dehydrogenase (91-225) IU/L Troponin I High Sens (2.3-14.8) ng/L C-Reactive Protein (0-1.0) mg/dL Vitamin B12 (180-914) pg/mL Folate (5.90 - >24.8) ng/mL Cortisol 30.8 ug/dL Urine Color Urine Clarity (CLEAR) Urine pH (5.0-7.5) PH Ur Specific [place] (1.002-1.030) Urine Protein (NEGATIVE) mg/dL Urine Glucose (UA) (NEGATIVE) mg/dL Urine Ketones (NEGATIVE) mg/dL Urine Occult Blood (NEGATIVE) Urine Nitrite (NEGATIVE) Urine Bilirubin (NEGATIVE) Urine Urobilinogen (NORMAL) E.U./dL Ur Leukocyte Esterase (NEGATIVE) Urine RBC (0-5) /HPF Urine WBC (0-5) /HPF Ur Squamous Epith Cells (<= Few) Urine Bacteria (None Seen) /HPF Ur Microscopic Review Urine Culture Comments Nasal Adenovirus (PCR) Nasal B. parapertussis DNA (PCR) Nasal Coronavir 229E PCR Nasal Coronavir HKU1 PCR Nasal Coronavir NL63 PCR Nasal Coronavir OC43 PCR Nasal Enterovir/Rhinovir PCR Nasal Influenza B PCR Nasal Influenza A PCR Nasal Parainfluen 1 PCR Nasal Parainfluen 2 PCR Nasal Parainfluen 3 PCR Nasal Parainfluen 4 PCR Nasal RSV (PCR) Nasal Screen MRSA (PCR) (NEGATIVE) Nasal B.pertussis DNA PCR Nasal C.pneumoniae (PCR) Kleber Human Metapneumo PCR Nasal M.pneumoniae (PCR) Nasal SARS-CoV-2 (PCR) Urine Opiates Screen (NEGATIVE) Ur Oxycodone Screen (NEGATIVE) Urine Methadone Screen (NEGATIVE) Ur Propoxyphene Screen (NEGATIVE) Ur Barbiturates Screen (NEGATIVE) Ur Tricyclics Screen (NEGATIVE) Ur Phencyclidine Scrn (NEGATIVE) Ur Amphetamine Screen (NEGATIVE) U Methamphetamines Scrn (NEGATIVE) U Benzodiazepines Scrn (NEGATIVE) Urine Cocaine Screen (NEGATIVE) U Cannabinoids Screen (NEGATIVE) Blood Type Blood Type Recheck Antibody Screen Crossmatch IS Only 04/22/20 04/22/20 04/22/20 Range/Units 01:29 00:32 00:28 WBC (4.8-10.8) x10^3/uL RBC (4.20-5.40) 10^6/uL Hgb (12.0-16.0) g/dL Hct (37.0-47.0) % MCV (81.0-99.0) fL MCH (27.0-31.0) pg MCHC (32.0-36.0) g/dL RDW (12.0-15.0) % Plt Count (130-450) 10^3/uL MPV (7.9-10.8) fL Reticulocyte % (Auto) (0.5-2.3) % Neut # (Auto) (1.5-6.6) 10^3/uL Lymph # (Auto) (1.5-3.5) 10^3/uL Love # (Auto) (0.0-1.0) 10^3/uL Eos # (Auto) (0.0-0.7) 10^3/uL Baso # (Auto) (0.0-0.1) 10^3/uL Absolute Nucleated RBC x10^3/uL Nucleated RBC % /100WBC Absolute Retic (0.020-0.110) 10^6/uL PT (9.9-12.6) secs INR (0.8-1.2) APTT (24.9-33.3) secs Fibrinogen (220-496) mg/dL Sodium (135-145) mmol/L Potassium (3.5-5.0) mmol/L Chloride (101-111) mmol/L Carbon Dioxide (21-32) mmol/L Anion Gap (6-13) BUN (6-20) mg/dL Creatinine (0.4-1.0) mg/dL Estimated GFR (MDRD) (>89) Glucose (70-100) mg/dL Lactic Acid (0.5-2.2) mmol/L Calcium (8.5-10.3) mg/dL Magnesium 2.6 (1.7-2.8) mg/dL Iron (28-170) ug/dL TIBC (250-450) ug/dL % Saturation (20-50) % Transferrin (192-382) mg/dL Ferritin (11.0-306.8) ng/mL Ammonia (7-35) umol/L Lactate Dehydrogenase (91-225) IU/L Troponin I High Sens (2.3-14.8) ng/L C-Reactive Protein < 1.0 (0-1.0) mg/dL Vitamin B12 (180-914) pg/mL Folate (5.90 - >24.8) ng/mL Cortisol ug/dL Urine Color YELLOW Urine Clarity CLEAR (CLEAR) Urine pH 6.0 (5.0-7.5) PH Ur Specific [place] <=1.005 (1.002-1.030) Urine Protein NEGATIVE (NEGATIVE) mg/dL Urine Glucose (UA) NEGATIVE (NEGATIVE) mg/dL Urine Ketones NEGATIVE (NEGATIVE) mg/dL Urine Occult Blood NEGATIVE (NEGATIVE) Urine Nitrite NEGATIVE (NEGATIVE) Urine Bilirubin NEGATIVE (NEGATIVE) Urine Urobilinogen 0.2 (NORMAL) (NORMAL) E.U./dL Ur Leukocyte Esterase SMALL H (NEGATIVE) Urine RBC 0-5 (0-5) /HPF Urine WBC 4-5 (0-5) /HPF Ur Squamous Epith Cells RARE Squamous (<= Few) Urine Bacteria Moderate H (None Seen) /HPF Ur Microscopic Review INDICATED Urine Culture Comments INDICATED Nasal Adenovirus (PCR) NOT DETECTED Nasal B. parapertussis DNA (PCR) NOT DETECTED Nasal Coronavir 229E PCR NOT DETECTED Nasal Coronavir HKU1 PCR NOT DETECTED Nasal Coronavir NL63 PCR NOT DETECTED Nasal Coronavir OC43 PCR NOT DETECTED Nasal Enterovir/Rhinovir PCR NOT DETECTED Nasal Influenza B PCR NOT DETECTED Nasal Influenza A PCR NOT DETECTED Nasal Parainfluen 1 PCR NOT DETECTED Nasal Parainfluen 2 PCR NOT DETECTED Nasal Parainfluen 3 PCR NOT DETECTED Nasal Parainfluen 4 PCR NOT DETECTED Nasal RSV (PCR) NOT DETECTED Nasal Screen MRSA (PCR) (NEGATIVE) Nasal B.pertussis DNA PCR NOT DETECTED Nasal C.pneumoniae (PCR) NOT DETECTED Kleber Human Metapneumo PCR NOT DETECTED Nasal M.pneumoniae (PCR) NOT DETECTED Nasal SARS-CoV-2 (PCR) NOT DETECTED Urine Opiates Screen NEGATIVE (NEGATIVE) Ur Oxycodone Screen NEGATIVE (NEGATIVE) Urine Methadone Screen NEGATIVE (NEGATIVE) Ur Propoxyphene Screen NEGATIVE (NEGATIVE) Ur Barbiturates Screen NEGATIVE (NEGATIVE) Ur Tricyclics Screen NEGATIVE (NEGATIVE) Ur Phencyclidine Scrn NEGATIVE (NEGATIVE) Ur Amphetamine Screen NEGATIVE (NEGATIVE) U Methamphetamines Scrn NEGATIVE (NEGATIVE) U Benzodiazepines Scrn NEGATIVE (NEGATIVE) Urine Cocaine Screen NEGATIVE (NEGATIVE) U Cannabinoids Screen NEGATIVE (NEGATIVE) Blood Type Blood Type Recheck Antibody Screen Crossmatch IS Only 04/21/20 04/21/20 Range/Units 23:39 22:10 WBC (4.8-10.8) x10^3/uL RBC (4.20-5.40) 10^6/uL Hgb (12.0-16.0) g/dL Hct (37.0-47.0) % MCV (81.0-99.0) fL MCH (27.0-31.0) pg MCHC (32.0-36.0) g/dL RDW (12.0-15.0) % Plt Count (130-450) 10^3/uL MPV (7.9-10.8) fL Reticulocyte % (Auto) (0.5-2.3) % Neut # (Auto) (1.5-6.6) 10^3/uL Lymph # (Auto) (1.5-3.5) 10^3/uL Love # (Auto) (0.0-1.0) 10^3/uL Eos # (Auto) (0.0-0.7) 10^3/uL Baso # (Auto) (0.0-0.1) 10^3/uL Absolute Nucleated RBC x10^3/uL Nucleated RBC % /100WBC Absolute Retic (0.020-0.110) 10^6/uL PT (9.9-12.6) secs INR (0.8-1.2) APTT (24.9-33.3) secs Fibrinogen (220-496) mg/dL Sodium (135-145) mmol/L Potassium (3.5-5.0) mmol/L Chloride (101-111) mmol/L Carbon Dioxide (21-32) mmol/L Anion Gap (6-13) BUN (6-20) mg/dL Creatinine (0.4-1.0) mg/dL Estimated GFR (MDRD) (>89) Glucose (70-100) mg/dL Lactic Acid 7.7 H* (0.5-2.2) mmol/L Calcium (8.5-10.3) mg/dL Magnesium (1.7-2.8) mg/dL Iron (28-170) ug/dL TIBC (250-450) ug/dL % Saturation (20-50) % Transferrin (192-382) mg/dL Ferritin (11.0-306.8) ng/mL Ammonia (7-35) umol/L Lactate Dehydrogenase (91-225) IU/L Troponin I High Sens 4.9 (2.3-14.8) ng/L C-Reactive Protein (0-1.0) mg/dL Vitamin B12 (180-914) pg/mL Folate (5.90 - >24.8) ng/mL Cortisol ug/dL Urine Color Urine Clarity (CLEAR) Urine pH (5.0-7.5) PH Ur Specific [place] (1.002-1.030) Urine Protein (NEGATIVE) mg/dL Urine Glucose (UA) (NEGATIVE) mg/dL Urine Ketones (NEGATIVE) mg/dL Urine Occult Blood (NEGATIVE) Urine Nitrite (NEGATIVE) Urine Bilirubin (NEGATIVE) Urine Urobilinogen (NORMAL) E.U./dL Ur Leukocyte Esterase (NEGATIVE) Urine RBC (0-5) /HPF Urine WBC (0-5) /HPF Ur Squamous Epith Cells (<= Few) Urine Bacteria (None Seen) /HPF Ur Microscopic Review Urine Culture Comments Nasal Adenovirus (PCR) Nasal B. parapertussis DNA (PCR) Nasal Coronavir 229E PCR Nasal Coronavir HKU1 PCR Nasal Coronavir NL63 PCR Nasal Coronavir OC43 PCR Nasal Enterovir/Rhinovir PCR Nasal Influenza B PCR Nasal Influenza A PCR Nasal Parainfluen 1 PCR Nasal Parainfluen 2 PCR Nasal Parainfluen 3 PCR Nasal Parainfluen 4 PCR Nasal RSV (PCR) Nasal Screen MRSA (PCR) (NEGATIVE) Nasal B.pertussis DNA PCR Nasal C.pneumoniae (PCR) Kleber Human Metapneumo PCR Nasal M.pneumoniae (PCR) Nasal SARS-CoV-2 (PCR) Urine Opiates Screen (NEGATIVE) Ur Oxycodone Screen (NEGATIVE) Urine Methadone Screen (NEGATIVE) Ur Propoxyphene Screen (NEGATIVE) Ur Barbiturates Screen (NEGATIVE) Ur Tricyclics Screen (NEGATIVE) Ur Phencyclidine Scrn (NEGATIVE) Ur Amphetamine Screen (NEGATIVE) U Methamphetamines Scrn (NEGATIVE) U Benzodiazepines Scrn (NEGATIVE) Urine Cocaine Screen (NEGATIVE) U Cannabinoids Screen (NEGATIVE) Blood Type Blood Type Recheck Antibody Screen Crossmatch IS Only Sepsis Event Note (H) - Evaluation Possible source of Sepsis: positive: Unknown Assessment/Plan - Problem List (1) Hypotension Qualifiers: Hypotension type: unspecified hypotension type Qualified Code(s): I95.9 - Hypotension, unspecified (2) Alcohol intoxication Qualifiers: Complication of substance-induced condition: with unspecified complication Qualified Code(s): F10.929 - Alcohol use, unspecified with intoxication, unspecified (3) Anemia Qualifiers: Anemia type: unspecified type Qualified Code(s): D64.9 - Anemia, unspecified (4) Abdominal pain Qualifiers: Abdominal location: upper abdomen, unspecified Qualified Code(s): R10.10 - Upper abdominal pain, unspecified
--- NOTE | 2020-04-22 23:46 | Discharge Plan ---
Discharge Plan Problem Reviewed?: Yes Disposition: 02 Transfer Acute Care Hosp Condition: Critical No Smoking: If you smoke, Please STOP! Call for help.
[2020-04-23] MEDS: MORPHINE 2 MG/ML CARPUJECT IVP PRN (00:21)
[2020-04-23 00:39] VITALS: BP 130/74
[2020-04-23 12:07] LABS: HEPATITIS A IGM NON-REACTIVE (NON-REACTIVE); HEPATITIS B SURFACE ANTIGEN NON-REACTIVE (NON-REACTIVE); HEPATITIS C ANTIBODY REACTIVE (NON-REACTIVE)
== END 2020-04-23 00:30 | disposition short-term general hospital (02) | DRG 436 ==
LOC: ED 21:44 → ICU 04-22 01:01 → MERGE 04-22 01:01 → ICU 04-22 01:57
PROVIDERS: ADMIT Specialist; ATTEND Specialist
DX: F10.929 Alcohol use, unspecified with intoxication, unspecified (principal); R57.9 Shock, unspecified; Z20.822 Contact with and (suspected) exposure to COVID-19; C22.9 Malignant neoplasm of liver, not specified as primary or secondary; D62 Acute posthemorrhagic anemia; E87.2 Acidosis; K70.31 Alcoholic cirrhosis of liver with ascites; F10.129 Alcohol abuse with intoxication, unspecified; K72.90 Hepatic failure, unspecified without coma; E87.6 Hypokalemia; R73.9 Hyperglycemia, unspecified; Y90.8 Blood alcohol level of 240 mg/100 ml or more; F17.210 Nicotine dependence, cigarettes, uncomplicated; M62.59 Muscle wasting and atrophy, not elsewhere classified, multiple sites; G89.29 Other chronic pain; M54.9 Dorsalgia, unspecified; M54.2 Cervicalgia; M25.519 Pain in unspecified shoulder
CPT/HCPCS: 36415; 36556; 51702; 70450; 71045; 74176; 74177; 80048; 80053; 80074; 81001; 82105; 82140; 82533; 82607; 82728; 82746; 83540; 83605; 83615; 83690; 83735; 84466; 84484; 85014; 85018; 85025; 85045; 85384; 85610; 85730; 86140; 86850; 86900; 86901; 86920; 87040; 87077; 87086; 87150; 87181; 93005; 96361; 96365; 99285; 99291; J3370; J3411; J7040; P9016; P9017; Q9967; 0202U; 80202; 80306; 80320; 81003; 87522

== ENCOUNTER 2020-04-23 00:34 | Outpatient (CLI) | payer MEDICARE | END 2020-04-23 00:35 | disposition short-term general hospital (02) | LOC: EMS 00:34 | PROVIDERS: ATTEND Surgery | DX: K76.89 Other specified diseases of liver (principal); Z74.01 Bed confinement status | CPT/HCPCS: A0425; A0426 ==